=== PATIENT | male | born 1960 | race Caucasian/White ===

== ENCOUNTER → 2016-08-06 | Outpatient (CLI) | payer MEDICAID ==
--- NOTE | 2016-08-06 22:49 | MR ---
EXAMINATION TYPE: MR shoulder RT wo con DATE OF EXAM: 08/06/2016 4:53 PM COMPARISON: Outside radiographs 07/23/2016 HISTORY: 55-year-old male with pain in right shoulder TECHNIQUE: Multiplanar, multisequence imaging of the right shoulder is performed without contrast. FINDINGS: There is intermediate signal within the intracapsular portion of the long head biceps tendon suggesti ng tendinosis. Some intermediate signal involving the subscapularis tendon which remains intact. There is moderate degenerative joint space narrowing with marginal spurring and e capsular hypertroph y of the acromioclavicular joint weight inferior spurring encroaching onto the subacromial space with mild mass effect onto the myotendinous junction of the supraspinatus. No significant fluid distention of the subacromial/subdeltoid bursa. No atrophy of the rotator cuff m usculature. There is diffuse heterogeneous signal within both supraspinatus and infraspinatus tendons more extens oralia with associated thickening at the junction of the supraspinatus and infraspinatus tendons, segundo l T2 FS image 13. In addition, there is shallow bursal sided tear of the anterior supraspinatus tendo n measuring 1.3 cm long by 1.2 cm AP dimension. Some intrasubstance tearing possibly communicating wi th the bursal surface is present proximal to the footprint below the acromion at the supraspinatus in fraspinatus junction, coronal T2 FS image 15. No full-thickness tear. There is blunted and degenerative appearance to the superior labrum. No paralabral cyst. Glenohumeral joint is intact without significant joint effusion. No Hill-Sachs deformity or os acromiale. No suspicious bone marrow replacement. IMPRESSION: 1. Diffuse rotator cuff tendinosis with a shallow bursal sided tear of the anterior supraspinatus ten don (1.3 x 1.2 cm). Additional intrasubstance tear possibly communicating with the bursal surface mor e proximally below the acromion at the supraspinatus infraspinatus junction. No full-thickness tear o r muscle atrophy. 2. Intracapsular long head biceps tendinosis. 3. Moderate AC joint osteoarthrosis. Inferior spurring mildly impinges the underlying cuff.
== END | disposition home or self-care (01) ==
LOC: RADMRIMAIN 16:11
PROVIDERS: ATTEND Orthopaedic Surgery
DX: M19.011 Primary osteoarthritis, right shoulder (principal); M75.101 Unspecified rotator cuff tear or rupture of right shoulder, not specified as traumatic

== ENCOUNTER → 2016-09-11 | Outpatient (CLI) | payer MEDICAID ==
[2016-09-11 10:44] LABS: EKG EKG PERFORMED
[2016-09-11 10:59] LABS: Basophils % (A) 1 %; CH 30.3; CHCM 34.2; Eosinophils # (A) 0.2 k/uL (0-0.7); Eosinophils % (A) 2 %; HDW 2.97; HGB 14.3 gm/dL (13.0-17.5); Luc # (Auto) 0.27; Luc % (Auto) 4; Lymphocytes # (A) 2.9 k/uL (1.0-4.8); Lymphocytes % (A) 39 %; MCHC 32.6 g/dL (31.0-37.0); MCV 89.1 fL (80.0-100.0); Mean Platelet Volume 6.9; Monocytes # (A) 0.6 k/uL (0-1.0); Monocytes % (A) 8 %; Neutrophils # (A) 3.5 k/uL (1.3-7.7); Neutrophils % (A) 47 %; RBC 4.95 m/uL (4.30-5.90); RDW 13.3 % (11.5-15.5); WBC 7.6 k/uL (3.8-10.6); WBC (Perox) 7.79
[2016-09-11 11:12] LABS: Anion Gap 11 mmol/L; Carbon Dioxide 23 mmol/L (22-30); Chloride 107 mmol/L (98-107); Potassium 4.7 mmol/L (3.5-5.1); Sodium 141 mmol/L (137-145)
== END | disposition home or self-care (01) ==
LOC: LABPAT 10:35
PROVIDERS: ATTEND Orthopaedic Surgery
DX: Z01.810 Encounter for preprocedural cardiovascular examination (principal); M75.41 Impingement syndrome of right shoulder
CPT/HCPCS: 80051; 85025; 93005

== ENCOUNTER 2016-09-23 05:59 | Day surgery (SDC) | payer MEDICAID ==
[2016-09-18 10:57] VITALS: BMI 40.6
--- NOTE | 2016-09-22 15:03 | HP ---
DATE OF ADMISSION: 09/23/2016 Rob Swan is a 55-year-old patient seen with progressive right shoulder pain. After having treatment options discussed, he elected to proceed with right shoulder arthroscopy. Consent was obtained. Past medical history is noncontributory. Past surgical history is facial reconstructive surgery. DAILY MEDICATIONS: Naprosyn as needed. ALLERGIES: None reported. SOCIAL HISTORY: Patient denies current tobacco use. Physical evaluation of right shoulder: Flexion is 100 degrees, abduction is 90 degrees, external rotation is 50 degrees with some weakness. There is tenderness along the anterolateral acromion and rotator cuff insertion. Impingement +90 degrees, cross body adduction sign is positive. Distal neurovascular exam is intact. Right shoulder radiographs revealed a type 2 anterior acromion, acromioclavicular joint osteoarthritis, and cystic changes of the greater tuberosity. An MRI of the right shoulder revealed a partial rotator cuff tear, with biceps tendinitis as well as acromioclavicular joint osteoarthritis. IMPRESSION: Right shoulder impingement with partial rotator cuff tear and acromioclavicular joint osteoarthritis. PLAN: Right shoulder arthroscopy, subacromial decompression, possible arthroscopic rotator cuff repair, probable AC joint resection, probable biceps tenotomy, and debridement.
[~2016-09-23 05:59] MED LIST: DEXAMETHASONE SOD PHOSPHATE 10 MG/ML 1 ML VIAL IV ONE; HYDROmorphone 1 MG/ML 1 ML SYRINGE IVP PRN; LACTATED RINGERS 1,000 ML IV SCH; MIDAZOLAM 2 MG/2 ML VIAL IV PRN; ceFAZolin 3 GM in SODIUM CHLORIDE 0.9% 100 ML IVPB ONE
[2016-09-23] MEDS: ONDANSETRON 4 MG/2 ML VIAL IVP ONE ×2 (06:28→12:35)
[2016-09-23] MEDS ORDERED: LIDOCAINE 1% 20 ML VIAL (10MG/ML) FOR IV START INTRADERMA ONE (06:28)
[2016-09-23] MEDS ORDERED: NEOSTIGMINE 1 MG/ML 10 ML VIAL ONE (07:38)
[2016-09-23] MEDS ORDERED: LIDOCAINE 2%-EPI 1:100,000 20 ML VIAL ONE (07:38)
[2016-09-23] MEDS ORDERED: GLYCOPYRROLATE 0.2 MG/ML 2 ML VIAL ONE (07:38)
[2016-09-23] MEDS ORDERED: ROPIVACAINE 5 MG/ML 30 ML VIAL ONE (07:38)
[2016-09-23] MEDS ORDERED: ROCURONIUM BROMIDE 10 MG/ML 10 ML VIAL IV ONE (07:38)
[2016-09-23] MEDS ORDERED: fentaNYL (PF) 50 MCG/ML 2 ML AMP ONE (07:38)
[2016-09-23] MEDS ORDERED: MIDAZOLAM 2 MG/2 ML VIAL ONE (07:38)
[2016-09-23] MEDS ORDERED: SUCCINYLCHOLINE CHLORIDE VIAL 200 MG/10 ML VIAL IV ONE (07:38)
[2016-09-23] MEDS ORDERED: PROPOFOL 10 MG/ML 20 ML VIAL IV ONE (07:38)
[2016-09-23] MEDS ORDERED: LIDOCAINE 1% INJ 10MG/ML (20 ML MDV) ONE (07:38)
[2016-09-23] MEDS ORDERED: LACTATED RINGERS 1,000 ML IV ONE (07:40)
--- NOTE | 2016-09-23 09:24 | P.OP ---
Date of Procedure: 09/23/16 Preoperative Diagnosis: Right shoulder impingement Postoperative Diagnosis: 1. Right shoulder partial rotator cuff tendon tear 2. Right shoulder impingement 3. Right shoulder acromioclavicular joint osteoarthritis 4. Right shoulder partial biceps tendon tear 5. Right shoulder superficial labral tear Procedure(s) Performed: 1. Right shoulder arthroscopic debridement partial rotator cuff tear 2. Right shoulder arthroscopic subacromial decompression 3. Right shoulder arthroscopic Adriel procedure 4. Right shoulder arthroscopic biceps tenotomy 5. Right shoulder arthroscopic debridement labral tear Anesthesia: GETA, regional (Interscalene block) Surgeon: Jeet Lopez [employer] Designer #1: Tobin Zhao Estimated Blood Loss (ml): 10 Pathology: none sent Condition: stable Disposition: PACU Indications for Procedure: 55-year-old patient seen with progressive right shoulder pain. After having treatment options discussed, he elected to proceed with right shoulder arthroscopy. Operative Findings: See description of procedure Description of Procedure: Patient underwent a shoulder block by department of anesthesia. The patient was then taken to the operative suite. The patient underwent a general anesthetic by the department of anesthesia. The patient was placed into a lateral position and secured. There was appropriate padding of the bony prominence. Right shoulder was then prepped and draped in normal sterile orthopedic fashion. We placed the extremity in 10 pounds of longitudinal traction. A posterior incision was now made for a posterior working portal site. The trocar and cannula were inserted into the glenohumeral joint. Arthroscopy was initiated. Spinal needle was now inserted anteriorly, to ascertain the anterior working portal site. An incision was now made in that area, a trocar was inserted followed by a probe. There was superficial tearing of the superior and anterior labrum. Grade 1 chondral malacia changes of the glenoid with no significant osteochondral tears. Partial long head biceps tendon tearing with hyperemia. No loose bodies. I performed a biceps tenotomy. I debrided the labral tear down to stable tissue. The residual labrum was probed and found to be stable. Instruments were now removed from the glenohumeral joint. Utilizing the posterior working portal site, the trocar and cannula were inserted into the subacromial space. Arthroscopy initiated. I made an incision 2 fingerbreadths lateral to the acromion. I introduced my trocar followed by my ArthroCare ablator. I now began ablating thick subacromial bursal tissue, which exposed the undersurface of the anterior acromion. This was diminished subacromial space. There was a very prominent anterior acromion. A motorized bur was introduced and a subacromial decompression was performed. I also excised some osteophytes off the inferior aspect of the distal clavicle. The AC joint was visualized and noted to be fairly arthritic. A motorized bur was introduced in the anterior portal site and a Adriel procedure was performed without difficulty, decompressing the AC joint nicely. I turned my attention to the rotator cuff. There was superficial tearing of the distal supraspinatus area. I now debrided that getting down to stable tissue with a motorized shaver. The residual tendon was stable. There was no through and through perforation. There was good healthy residual rotator cuff tendon tissue present. I injected that area with 1 mL of Allogen. Instruments now removed from the portal sites. All portal sites were approximated with nylon suture. Sterile dressings were applied followed by a shoulder immobilizer. Robbie LOPES assisted with the procedure. The patient was awakened, transferred to a bed, and taken to recovery in stable condition.
[2016-09-23 09:26] VITALS: TEMP 97.7
--- NOTE | 2016-09-23 10:07 | P.ONQ ---
Anesthesiology Proc Note - PNB - Peripheral Nerve Block Performed Right Interscalene Single Time Out Performed: Yes Indication: Acute Post-Operative Pain Sedation Type: Sedate with meaningful contact maintained Preparation: Sterile Prep Position: Supine Needle Gauge: 21 Technique: Ultrasound Injectate: 0.5% Ropivacaine (see comment for volume) (ropi .5% 20 cc,xylo 2% with epi 15cc and dexamethasone 4mg) Blood Aspirated: No Pain Paresthesia on Injection Noted: No Resistance on Injection: Normal Events: Uneventful and Well Tolerated
[2016-09-23 11:35] VITALS: RESP 18
[2016-09-23 13:35] VITALS: BP 142/76; PULSE 68
== END 2016-09-23 13:58 | disposition home or self-care (01) ==
LOC: OR 05:59
PROVIDERS: ATTEND Orthopaedic Surgery
DX: M75.111 Incomplete rotator cuff tear or rupture of right shoulder, not specified as traumatic (principal); M75.41 Impingement syndrome of right shoulder; M19.011 Primary osteoarthritis, right shoulder; S46.111A Strain of muscle, fascia and tendon of long head of biceps, right arm, initial encounter; X58.XXXA Exposure to other specified factors, initial encounter; S43.401A Unspecified sprain of right shoulder joint, initial encounter; Z79.82 Long term (current) use of aspirin; Z79.1 Long term (current) use of non-steroidal anti-inflammatories (NSAID); Z88.5 Allergy status to narcotic agent; M25.711 Osteophyte, right shoulder
CPT/HCPCS: 29823; 29824; 64415; C1765; J2250; J0330; J1100; J2710; J0690; J2405; J2001; J3010; J2795; J2704

== ENCOUNTER 2017-04-23 16:16 | Emergency (ER) | payer MEDICAID, OTHER ==
[2017-04-23] MEDS ORDERED: DIPH,PERTUS(ACELL)TETVAC-LF 0.5 ML VIAL IM ONE (16:36)
[2017-04-23 16:38] VITALS: BP 169/93; PULSE 65; RESP 18; TEMP 97
--- NOTE | 2017-04-23 16:45 | ED ---
Wound/Laceration HPI - General Chief Complaint: Wound/Laceration Stated Complaint: head lac Time Seen by Provider: 04/23/17 16:33 Source: patient, RN notes reviewed Mode of arrival: ambulatory Limitations: no limitations - History of Present Illness Initial Comments: 56-year-old male presents to the emergency Department with chief complaint of scalp laceration. Patient states that he was at work upstairs in the [employer] states that he hit his head on a bracket. Patient states she's unsure when his last tetanus was. Patient did not lose consciousness. Patient has no headache at this time. Patient is blurred vision or any focal weakness. Patient states he felt that he had an episode of dizziness for first happened but states that was just because he struck his head. He states that immediately resolved. - Related Data Home Medications Medication Instructions Recorded Confirmed Aspirin 81 mg PO DAILY 04/04/14 09/23/16 Multivitamin [Men's Multi-Vitamin] 1 each PO DAILY 04/04/14 09/23/16 Naproxen 500 mg PO DAILY 09/18/16 09/23/16 Previous Rx's Medication Instructions Recorded Hydrocodone/Acetaminophen [Waldorf 1 - 2 each PO Q6H PRN #30 tab 09/23/16 10-325] Allergies Allergy/AdvReac Type Severity Reaction Status Date / Time morphine AdvReac Nausea & Verified 04/23/17 16:33 Vomiting Review of Systems ROS Statement: Those systems with pertinent positive or pertinent negative responses have been documented in the HPI. ROS Other: All systems not noted in ROS Statement are negative. Past Medical History Past Medical History: Cancer Additional Past Medical History / Comment(s): skin cancer History of Any Multi-Drug Resistant Organisms: MRSA Date of last positivie culture/infection: 2005 MDRO Source:: BILAT LEGS Past Surgical History: Orthopedic Surgery Additional Past Surgical History / Comment(s): 08/21 FACE RECONSTRUCTION R/T CANCER Past Anesthesia/Blood Transfusion Reactions: No Reported Reaction Past Psychological History: No Psychological Hx Reported Smoking Status: Never smoker Past Alcohol Use History: Occasional Past Drug Use History: None Reported - Past Family History Mother Family Medical History: No Reported History General Exam Limitations: no limitations General appearance: alert, in no apparent distress Head exam: Present: atraumatic, normocephalic. Absent: normal inspection (3 cm scalp laceration to left parietal region) Eye exam: Present: normal appearance, PERRL, EOMI. Absent: scleral icterus, conjunctival injection, periorbital swelling ENT exam: Present: normal exam, normal oropharynx, mucous membranes moist, TM's normal bilaterally Neck exam: Present: normal inspection, full ROM. Absent: tenderness, meningismus, lymphadenopathy Respiratory exam: Present: normal lung sounds bilaterally. Absent: respiratory distress, wheezes, rales, rhonchi, stridor Cardiovascular Exam: Present: regular rate, normal rhythm, normal heart sounds. Absent: systolic murmur, diastolic murmur, rubs, gallop, clicks Neurological exam: Present: alert, oriented X3, CN II-XII intact, reflexes normal. Absent: motor sensory deficit Course Vital Signs 04/23/17 16:30 Temperature 97 F L Pulse Rate 65 Respiratory 18 Rate Blood Pressure 169/93 O2 Sat by Pulse 95 Oximetry Procedures - Laceration Laceration #1 Consent Obtained: verbal consent Indication: laceration Site: scalp Size (cm): 3 Description: linear Depth: simple, single layer Anesthetic Used: lidocaine 1%, without epi Anesthesia Technique: local infiltration Amount (mls): 3 Pre-repair: wound explored, irrigated extensively, deep structures intact Type of Sutures: other (Dermal joana) Number of Sutures: 4 Technique: simple, interrupted Patient Tolerated Procedure: well, no complications Medical Decision Making - Medical Decision Making 56-year-old male present emergency from for scalp laceration. This was closed using dermal joana. Patient tolerated well, patient had a normal neurological exam. Patient had no evidence discussion. Return parameters were discussed. Tetanus was updated. Disposition Clinical Impression: Scalp laceration Disposition: HOME SELF-CARE Condition: Stable Instructions: Laceration (ED) Additional Instructions: Have joana removed in 5-7 days.Please return to the Emergency Department if symptoms worsen or any other concerns. Referrals: Collin Nuñez Jr, [Primary Care Provider] - 1-2 days Time of Disposition: 16:44
== END 2017-04-23 16:53 | disposition home or self-care (01) ==
LOC: EC 16:16
DX: S01.01XA Laceration without foreign body of scalp, initial encounter (principal); R42 Dizziness and giddiness; Z23 Encounter for immunization; Z86.14 Personal history of Methicillin resistant Staphylococcus aureus infection; Z85.828 Personal history of other malignant neoplasm of skin; Z79.82 Long term (current) use of aspirin; Z79.1 Long term (current) use of non-steroidal anti-inflammatories (NSAID); Z79.899 Other long term (current) drug therapy; Z88.5 Allergy status to narcotic agent; W22.8XXA Striking against or struck by other objects, initial encounter; Y92.234 Operating room of hospital as the place of occurrence of the external cause; Y99.0 Civilian activity done for income or pay
CPT/HCPCS: 12002; 90471; 90715; 99282

== ENCOUNTER 2018-06-21 06:54 | Emergency (ER) | payer MEDICAID ==
[2018-06-21 07:00] VITALS: RESP 18; TEMP 97.7
--- NOTE | 2018-06-21 07:44 | ED ---
Lower Extremity Injury HPI - General Chief Complaint: Extremity Injury, Lower Stated Complaint: L knee pain Time Seen by Provider: 06/21/18 07:04 Source: patient, RN notes reviewed Mode of arrival: wheelchair Limitations: no limitations, altered mental status, physical limitation - History of Present Illness Initial Comments: 57-year-old male presents emergency Department with chief complaint of left leg pain. Patient states that he felt that he initially just tore a muscle. Patient states that the pain seemed to worsen towards his knee. His knee was slightly swollen but has improved. He states the pain got worse overnight and he states he cannot bear any weight on it. Patient states that the pain is more on the lateral aspect of his leg. He denies any redness, fever, chills. Denies any trauma. Patient had no back pain no other issues with this in the past. Patient states she hasn't taken a couple Tylenol for the pain but otherwise no other medications. Denies chest pain or shortness of breath. - Related Data Home Medications Medication Instructions Recorded Confirmed Aspirin 81 mg PO DAILY 04/04/14 06/21/18 Multivitamin [Men's Multi-Vitamin] 1 each PO DAILY 04/04/14 06/21/18 Previous Rx's Medication Instructions Recorded predniSONE 50 mg PO DAILY #5 tab 06/21/18 Allergies Allergy/AdvReac Type Severity Reaction Status Date / Time morphine AdvReac Nausea & Verified 06/21/18 07:17 Vomiting Review of Systems ROS Statement: Those systems with pertinent positive or pertinent negative responses have been documented in the HPI. ROS Other: All systems not noted in ROS Statement are negative. Past Medical History Past Medical History: Cancer Additional Past Medical History / Comment(s): skin cancer, History of Any Multi-Drug Resistant Organisms: MRSA Date of last positivie culture/infection: 2005 MDRO Source:: BILAT LEGS Past Surgical History: Orthopedic Surgery Additional Past Surgical History / Comment(s): 08/21 FACE RECONSTRUCTION R/T CANCER, Past Anesthesia/Blood Transfusion Reactions: No Reported Reaction Past Psychological History: No Psychological Hx Reported Smoking Status: Never smoker Past Alcohol Use History: Occasional Past Drug Use History: None Reported - Past Family History Mother Family Medical History: No Reported History General Exam Limitations: physical limitation General appearance: alert, in no apparent distress Head exam: Present: atraumatic, normocephalic, normal inspection Neck exam: Present: normal inspection. Absent: tenderness, meningismus, lymphadenopathy Respiratory exam: Present: normal lung sounds bilaterally. Absent: respiratory distress, wheezes, rales, rhonchi, stridor Cardiovascular Exam: Present: regular rate, normal rhythm, normal heart sounds. Absent: systolic murmur, diastolic murmur, rubs, gallop, clicks Extremities exam: Present: other (Minimal swelling to the left leg there is no erythema, pedal pulses equal bilaterally. Patient has full range of motion, leg is neurovascularly intact strength equal bilaterally 5/5) Back exam: Present: full ROM. Absent: tenderness, paraspinal tenderness, vertebral tenderness Neurological exam: Present: alert, oriented X3, CN II-XII intact, reflexes normal. Absent: motor sensory deficit Skin exam: Present: warm, dry, intact, normal color. Absent: rash Course Vital Signs 06/21/18 06:57 Temperature 97.7 F Pulse Rate 76 Respiratory 18 Rate Blood Pressure 182/100 O2 Sat by Pulse 98 Oximetry Medical Decision Making - Medical Decision Making 57-year-old male present emergency dept for left leg pain. Patient pain has been over one week but worsened overnight. Patient's pain on lateral aspect. Patient also, x-ray. There is degenerative changes of his knee otherwise no other obvious injuries. Patient has no signs of infection pulses are equal bilaterally. This appears to be related to possible lumbar radicular pain. Did consider arterial occlusion, venous thrombosis, infection. There is no signs of these. Patient will be discharged with steroids, close follow-up with orthopedics pain control. Disposition Clinical Impression: Lumbar radiculopathy, acute, Left leg pain Disposition: HOME SELF-CARE Condition: Stable Instructions: Lumbar Radiculopathy (ED) Additional Instructions: Please return to the Emergency Department if symptoms worsen or any other concerns. Prescriptions: predniSONE 50 mg PO DAILY #5 tab Is patient prescribed a controlled substance at d/c from ED?: No Referrals: Collin Nuñez Jr, DO [Primary Care Provider] - 1-2 days Lj Marley MD [Medical Doctor] - 1-2 days Time of Disposition: 08:59
--- NOTE | 2018-06-21 08:04 | US ---
EXAMINATION TYPE: US venous doppler duplex LE LT DATE OF EXAM: 06/21/2018 7:50 AM COMPARISON: NONE CLINICAL HISTORY: Pain. Pain left leg SIDE PERFORMED: Left TECHNIQUE: The lower extremity deep venous system is examined utilizing real time linear array sonog sammie with graded compression, doppler sonography and color-flow sonography. VESSELS IMAGED: External Iliac Vein (EIV) Common Femoral Vein Deep Femoral Vein Greater Saphenous Vein * Femoral Vein Popliteal Vein Small Saphenous Vein * Proximal Calf Veins (* superficial vessels) There is normal flow, compressibility, vascular waveforms. Left Leg: Negative for DVT IMPRESSION: No evident deep venous thrombosis at or above the left knee.
--- NOTE | 2018-06-21 08:33 | XR ---
Left leg HISTORY: Pain and swelling 2 views of the left leg and 4 images Soft tissue swelling is noted. Small ossific densities at the level of the medial malleolus are well- corticated and not felt likely to be acute. Alignment, joint spaces, bone mineralization normal. Calc ifications present at the level of the insertion of the patellar tendon shows a nonaggressive appeara nce. Enthesophyte present at the proximal tibia, patella tendon origin and quadriceps tendon insertio n. IMPRESSION: No acute abnormalities evident.
[2018-06-21] MEDS ORDERED: traMADol 50 MG STARTER PACK 3 TAB BTL PO STA (08:59)
[2018-06-21 09:28] VITALS: BP 147/87; PULSE 72
== END 2018-06-21 09:21 | disposition home or self-care (01) ==
LOC: EC 06:54
DX: M54.16 Radiculopathy, lumbar region (principal); M25.562 Pain in left knee; Z85.828 Personal history of other malignant neoplasm of skin; Z86.14 Personal history of Methicillin resistant Staphylococcus aureus infection; Z79.82 Long term (current) use of aspirin; Z88.5 Allergy status to narcotic agent
CPT/HCPCS: 99284

== ENCOUNTER → 2018-06-24 | Outpatient (CLI) | payer MEDICAID ==
--- NOTE | 2018-06-26 22:03 | MR ---
EXAMINATION TYPE: MR knee LT wo con DATE OF EXAM: 06/24/2018 COMPARISON: Outside left knee x-ray June 21, 2018. HISTORY: Pain in left knee and calf x 10 days, no known trauma TECHNIQUE: Multiplanar, multisequence images of the knee is performed without IV contrast. FINDINGS: Examination was suboptimal due to patient's large body habitus, wraparound artifact is pres ent along with heterogeneous fat saturation. MEDIAL MENISCUS: Anterior horn is intact without tear. Oblique signal posterior horn of medial menisc us does not distinctly extend to the inferior articular surface. LATERAL MENISCUS: Anterior and posterior horns are intact without tear. CRUCIATE LIGAMENTS: The anterior and posterior cruciate ligaments are intact and unremarkable. COLLATERAL LIGAMENTS: The medial collateral ligament and lateral collateral ligament complex are inta ct and unremarkable. EXTENSOR MECHANISM: Visualized quadriceps and patellar tendons are intact. There appears to be ossifi c fragmentation from the tibial tuberosity suggesting old [place] Schlatter injury. Correlate clinical ly. EFFUSION: No significant suprapatellar joint effusion. POPLITEAL CYST: There is small popliteal/reyna fluid collection possible leaking Reyna's cyst. TRICOMPARTMENT SPACES: There is mild tricompartment spurring. There is mild joint space loss medial l ateral tibiofemoral compartments. [id number] narrowing patellofemoral compartment is present. CARTILAGE: There is tricompartment mild cartilaginous loss. No full-thickness defects are seen. BONE MARROW SIGNAL: Heterogeneity consistent with red marrow reconversion is present. No suspicious e snow is seen. OTHER: No additional significant abnormality is appreciated. IMPRESSION: 1. Mild to moderate tricompartment degenerative changes as detailed above. 2. Suspect intrasubstance tear posterior horn medial meniscus. No full-thickness meniscal or ligament ous tear is seen. 3. 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
== END | disposition home or self-care (01) ==
LOC: RADMRIMAIN 16:35
PROVIDERS: ATTEND Orthopaedic Surgery
DX: M25.562 Pain in left knee (principal); M17.12 Unilateral primary osteoarthritis, left knee

== ENCOUNTER → 2018-08-01 | Outpatient (CLI) | payer MEDICAID ==
[2018-08-01 12:04] LABS: Basophils # (A) 0.1 k/uL (0-0.2); Basophils % (A) 1 %; Eosinophils # (A) 0.2 k/uL (0-0.7); Eosinophils % (A) 2 %; HCT 44.3 % (39.0-53.0); HGB 14.3 gm/dL (13.0-17.5); Lymphocytes # (A) 2.4 k/uL (1.0-4.8); Lymphocytes % (A) 30 %; MCH 28.6 pg (25.0-35.0); MCHC 32.3 g/dL (31.0-37.0); MCV 88.6 fL (80.0-100.0); Mean Platelet Volume 6.2; Monocytes # (A) 0.5 k/uL (0-1.0); Monocytes % (A) 7 %; Neutrophils # (A) 4.6 k/uL (1.3-7.7); Neutrophils % (A) 58 %; Platelet Count 189 k/uL (150-450); RDW 13.9 % (11.5-15.5)
[2018-08-01 12:26] LABS: Potassium 4.7 mmol/L (3.5-5.1)
== END ==
LOC: LABPAT 10:45
PROVIDERS: ATTEND Orthopaedic Surgery
DX: Z01.812 Encounter for preprocedural laboratory examination (principal); M23.92 Unspecified internal derangement of left knee
CPT/HCPCS: 36415; 80051; 85025

== ENCOUNTER 2018-08-04 13:18 | Day surgery (SDC) | payer MEDICAID ==
[2018-08-03 08:57] VITALS: BMI 40.6
--- NOTE | 2018-08-03 17:49 | HP ---
HISTORY AND PHYSICAL REASON FOR ADMISSION: Surgery scheduled 08/04/2018 HISTORY OF PRESENT ILLNESS: Rob Swan is a 57-year-old patient seen with progressive left knee pain. We discussed options for treatment. He elected to proceed with left knee arthroscopy. Consent was obtained. PAST MEDICAL HISTORY: Noncontributory. PAST SURGICAL HISTORY: Facial reconstructive surgery. MEDICATIONS: Daily medication include: Aspirin, multivitamin. ALLERGIES: MORPHINE. SOCIAL HISTORY: Denies tobacco use. PHYSICAL EXAMINATION: Evaluation of the left knee: Range of motion 0-115 degrees. Tenderness medial joint line. Positive medial Barbara's. Ligaments stable. Hip rotation without pain. Distal neurovascular exam is intact. RADIOGRAPHS: Left knee radiographs revealed no osseous abnormality. MRI of the left knee revealed osteoarthritic changes. IMPRESSION: Internal derangement, left knee with meniscal tear versus osteochondral tear. PLAN: Left knee arthroscopy with partial meniscectomy versus chondroplasty and debridement. Surgery scheduled for 08/04/2018. MMODL / IJN: [id number] /
[~2018-08-04 13:18] MED LIST changes: -HYDROmorphone 1 MG/ML 1 ML SYRINGE IVP PRN; +LIDOCAINE 1% 20 ML VIAL (10MG/ML) FOR IV START INTRADERMA PRN; +MIDAZOLAM (PF) 2 MG/2 ML VIAL IV PRN; -MIDAZOLAM 2 MG/2 ML VIAL IV PRN; +ONDANSETRON 4 MG/2 ML VIAL IVP ONE; +SCOPOLAMINE 1.5MG/72HR PATCH TRANSDERM ONE; -ceFAZolin 3 GM in SODIUM CHLORIDE 0.9% 100 ML IVPB ONE
[2018-08-04 13:53] LABS: Glucose,Whole Blood 90 mg/dL (75-99)
[2018-08-04] MEDS ORDERED: LIDOCAINE 1% INJ 10MG/ML (20 ML MDV) ONE (14:36)
[2018-08-04] MEDS ORDERED: HYDROmorphone (PF) 1 MG/ML ONE (14:36)
[2018-08-04] MEDS ORDERED: fentaNYL (PF) 50 MCG/ML 2 ML AMP ONE (14:36)
[2018-08-04] MEDS ORDERED: KETOROLAC 30 MG/ML 1 ML VIAL ONE (14:36)
[2018-08-04] MEDS ORDERED: MIDAZOLAM 2 MG/2 ML VIAL ONE (14:36)
[2018-08-04] MEDS ORDERED: SUCCINYLCHOLINE CHLORIDE 100 MG/5 ML SYR IV ONE (14:36)
[2018-08-04] MEDS ORDERED: PROPOFOL 10 MG/ML 20 ML VIAL IV ONE (14:36)
[2018-08-04] MEDS ORDERED: BUPIVACAIN-EPI 0.25%-1:200,000 30 ML VIAL INTRAARTIC ONE (14:46)
--- NOTE | 2018-08-04 15:32 | P.OP ---
Date of Procedure: 08/04/18 Preoperative Diagnosis: Internal derangement left knee Postoperative Diagnosis: 1. Tear medial meniscus left knee 2. Reactive synovitis medial, lateral and suprapatellar compartments left knee Procedure(s) Performed: 1. Arthroscopic partial medial meniscectomy left knee 2. Arthroscopic partial synovectomy medial, lateral and suprapatellar compartments left knee Anesthesia: CHRISA, local Surgeon: Jeet Lopez Estimated Blood Loss (ml): 5 Pathology: none sent Condition: stable Disposition: PACU Indications for Procedure: 57-year-old patient seen with progressive left knee pain. We discussed treatment options, he elected to proceed with arthroscopy. Description of Procedure: Patient was taken to the operative suite. Patient underwent a general anesthetic by the department of anesthesia. Patient was given preoperative antibiotics. The left lower extremity was placed in a well-padded arthroscopic leg tiwari. The left leg was prepped and draped in the normal sterile orthopedic fashion. A lateral parapatellar and suprapatellar incision was made. Trochars were inserted. Arthroscopy was initiated. Suprapatellar pouch revealed diffuse thick reactive synovitis. The patellofemoral joint appeared to articulate congruently. There was no chondromalacia present. The scope was guided into the medial gutter. No loose bodies or plica were identified. The scope was then guided into the medial compartment. A medial parapatellar incision was made. Trocar inserted followed by probe. There was a tear involving the posterior horn medial meniscus. There was thick reactive synovitis anteriorly. No loose bodies. Mild grade 1 chondromalacia of the femur. I performed a partial medial meniscectomy down to stable tissue. I performed a partial synovectomy decompressing the reactive synovitis. The residual meniscus was stable. There was good decompression of the synovitis. Scope and probe were then guided into the intercondylar notch. Cruciates were identified, probed and found to be stable. The scope and probe were then guided into lateral compartment. Lateral meniscus was probed and found to be stable. There was no chondromalacia present in the lateral compartment. There was some reactive synovitis along the anterior aspect lateral compartment. I performed a partial synovectomy involving the anterior aspect lateral compartment. There was good decompression of synovitis. The scope was in guided back into the suprapatellar compartment. I introduced a motorized shaver into the super patellar compartment. I debrided some piecemeal fragments of meniscus I encountered. I performed a partial synovectomy decompressing the reactive synovitis. The shaver was removed. I took one more look on the entire knee, no residual debris. Instruments were now removed from the joint. The joint was infiltrated with .25% Marcaine. Steri-Strips were applied to the portal sites. Sterile dressings were applied. The patient was placed into a SOY hose. No tourniquet was utilized. The patient was awakened, transferred to a bed and taken to recovery stable satisfactory condition.
[2018-08-04 15:38] VITALS: TEMP 98
[2018-08-04] MEDS ORDERED: hydrALAZINE HCL 20 MG/ML 1 ML VIAL IVP ONE (15:40)
[2018-08-04 15:55] VITALS: RESP 18
[2018-08-04] MEDS: HYDROmorphone 0.5 MG/0.5 ML SYRINGE IVP PRN ×2 (16:05→16:19)
[2018-08-04] MEDS ORDERED: HYDROcodone/APAP 7.5-325MG 1 EACH TAB PO ONE (17:21)
[2018-08-04 17:37] VITALS: BP 168/69; PULSE 76
[2018-08-04] MEDS ORDERED: ONDANSETRON 4 MG/2 ML VIAL IVP ONE (17:50)
[2018-08-04] MEDS ORDERED: LACTATED RINGERS 1,000 ML IV ONE (17:50)
== END 2018-08-04 18:15 | disposition home or self-care (01) ==
LOC: OR 13:18
PROVIDERS: ATTEND Orthopaedic Surgery
DX: M23.322 Other meniscus derangements, posterior horn of medial meniscus, left knee (principal); I10 Essential (primary) hypertension; M65.862 Other synovitis and tenosynovitis, left lower leg; M94.262 Chondromalacia, left knee; K21.9 Gastro-esophageal reflux disease without esophagitis; Z79.1 Long term (current) use of non-steroidal anti-inflammatories (NSAID); Z79.82 Long term (current) use of aspirin; Z79.899 Other long term (current) drug therapy; Z88.5 Allergy status to narcotic agent; Z85.828 Personal history of other malignant neoplasm of skin
CPT/HCPCS: 29881; 29876; J2250; J0360; J1100; J0690; J2405; J2001; J3010; J1885; J1170 ×2; J0330; J2704

== ENCOUNTER → 2019-08-07 | Outpatient (CLI) | payer MEDICAID ==
[2019-08-07 16:45] LABS: HCT 43.2 % (39.0-53.0); HGB 14.4 gm/dL (13.0-17.5); MCH 29.6 pg (25.0-35.0); MCHC 33.3 g/dL (31.0-37.0); Mean Platelet Volume 7.2; Platelet Count 154 k/uL (150-450); RBC 4.85 m/uL (4.30-5.90); RDW 13.6 % (11.5-15.5); WBC 7.5 k/uL (3.8-10.6)
[2019-08-07 16:53] LABS: ALT 46 U/L (4-49); AST 42 U/L (17-59); African American GFR (CKD) >90 (>60 ml/min/1.73 sqM); Albumin 4.2 g/dL (3.5-5.0); Alkaline Phosphatase 49 U/L (38-126); Anion Gap 8 mmol/L; Blood Urea Nitrogen 19 mg/dL (9-20); Calcium 8.7 mg/dL (8.4-10.2); Carbon Dioxide 27 mmol/L (22-30); Chloride 108 mmol/L (98-107); Glucose 115 mg/dL (74-99); Non-African American GFR(CKD) >90 (>60 ml/min/1.73 sqM); Potassium 4.2 mmol/L (3.5-5.1); Sodium 143 mmol/L (137-145); Total Bilirubin 0.6 mg/dL (0.2-1.3); Total Protein 6.6 g/dL (6.3-8.2)
== END | disposition home or self-care (01) ==
LOC: LABPAT 15:50
PROVIDERS: ATTEND Podiatrist Foot & Ankle Surgery
DX: Z01.812 Encounter for preprocedural laboratory examination (principal)
CPT/HCPCS: 36415; 80053; 85027

== ENCOUNTER 2019-08-09 11:43 | Day surgery (SDC) | payer MEDICAID ==
[2019-08-07 11:26] VITALS: BMI 43.7
[~2019-08-09 11:43] MED LIST changes: +HYDROmorphone 0.5 MG/0.5 ML SYRINGE IVP PRN; -LACTATED RINGERS 1,000 ML IV SCH; -MIDAZOLAM (PF) 2 MG/2 ML VIAL IV PRN; +Pre Op ABX Message 1 EACH MISC MISCELLANE ONE; -SCOPOLAMINE 1.5MG/72HR PATCH TRANSDERM ONE
[2019-08-09 12:18] VITALS: TEMP 97.2
[2019-08-09 12:27] LABS: Glucose,Whole Blood 88 mg/dL (75-99)
[2019-08-09] MEDS: LACTATED RINGERS 1,000 ML IV SCH ×2 (12:29→12:57)
[2019-08-09] MEDS ORDERED: MIDAZOLAM 2 MG/2 ML VIAL ONE (12:53)
[2019-08-09] MEDS ORDERED: PROPOFOL 10 MG/ML 20 ML VIAL IV ONE (12:53)
[2019-08-09] MEDS ORDERED: KETAMINE 10 MG/ML 20 ML VIAL ONE (12:53)
[2019-08-09] MEDS ORDERED: fentaNYL (PF) 50 MCG/ML 2 ML AMP ONE (12:53)
[2019-08-09] MEDS ORDERED: BUPIVACAINE (PF) 0.5% 30 ML VIAL SQ ONE (12:58)
--- NOTE | 2019-08-09 14:15 | P.OP ---
Date of Procedure: 08/09/19 Preoperative Diagnosis: Tailor bunion deformity bilaterally Postoperative Diagnosis: Same Procedure(s) Performed: Simple tailor bunionectomy procedure performed bilaterally Surgeon: Kulwant Ayala Indications for Procedure: Pain with ambulation and use of enclosures sugar Operative Findings: Unremarkable Description of Procedure: On the date of surgery the patient was taken the operating room in good condition placed on the operating table in a supine position where an IV was started and adequate IV anesthetic agents were utilized anesthesia was then further supplemented with a total of 20 mL of 0.5% plain Marcaine given in a [place] type block to the fifth ray complex of both feet Patient's feet and ankles were then prepped and draped in the usual aseptic manner. Her heavy web roll padding an ankle tourniquet was placed above the malleoli of each ankle. Patient's left foot and ankle were then elevated and exsanguinated of blood for approximately 2 minutes and the ankle tourniquet to the left ankle was inflated to approximately 250 mmHg At this time attention was directed to the dorsal aspect of the distal one third of the shaft of the fifth metatarsal where an approximately 3 cm dorsal linear incision was made the incision was deepened via sharp dissection down through the level of the subcutaneous tissue layers all neurovascular structures encountered were identified isolated and were retracted and any bleeding vessels were clamped electrocauterized dissection was then carried deep down to the level PERIOSTEAL STRUCTURES OVERLYING THE FIFTH METATARSAL HEAD. THESE WERE INCISED IN LINE WITH THE ORIGINAL SKIN INCISION AND UNDERSCORED AND RETRACTED FROM THE UNDERLYING BONE. AT THIS POINT IN TIME AN OSCILLATING BONE SAW WAS I NTRODUCED AND THE HYPEROSTOSIS PRESENT ON THE LATERAL SIDE OF THE FIFTH METATARSAL HEAD WAS RESECTED FLUSH IN LINE WITH THE SHAFT OF THE FIFTH METATARSAL AND REMOVED IN TOTAL FROM THE SURGICAL SITE. HER OUT THE SURGICAL PROCEDURE COPIOUS AMOUNTS OF STERILE SALINE SOLUTION WAS USED TO IRRIGATE THE SURGICAL SITE WHEN ADEQUATE BONE HAD BEEN DETERMINED TO BE RESECTED Periosteal Structures Were Coaptated and Maintained Utilizing 3-0 Vicryl Simple Interrupted Suture Subcutaneous Tissue Layers Were Then Coaptated and Maintained Utilizing 3-0 Vicryl Suture and the Skin Was Closed Utilizing 4-0 Nylon Simple Interrupted Suture Fluffs Four-Inch Conformer 4 Inch Coban Was Used To Form a Compression Dressing and the Ankle Tourniquet to the Left Ankle Was Deflated Adequate Hemostatic Return Was Seen in All Digits of the Left Foot Specifically the Fifth Digit At this point in time attention was directed to the patient's right foot where the exact same procedure described above for the patient's left foot was carried out on the patient's right foot Rate the surgeries and anesthesia well was taken recovery room in good postoperative condition
[2019-08-09 14:16] VITALS: RESP 16
[2019-08-09 14:44] VITALS: BP 133/85; PULSE 60
== END 2019-08-09 15:23 | disposition home or self-care (01) ==
LOC: OR 11:43
PROVIDERS: ATTEND Podiatrist Foot & Ankle Surgery
DX: M21.622 Bunionette of left foot (principal); M21.621 Bunionette of right foot; M89.8X7 Other specified disorders of bone, ankle and foot; E66.01 Morbid (severe) obesity due to excess calories; K21.9 Gastro-esophageal reflux disease without esophagitis; M19.90 Unspecified osteoarthritis, unspecified site; Z79.82 Long term (current) use of aspirin; Z88.5 Allergy status to narcotic agent; Z68.42 Body mass index [BMI] 45.0-49.9, adult; Z85.828 Personal history of other malignant neoplasm of skin
CPT/HCPCS: 88304; 88311; 28110; J2250; J1100; J2405; J0694; J3010; J2704

== ENCOUNTER 2019-10-17 09:11 | Emergency (ER) | payer MEDICAID ==
[2019-10-17] MEDS ORDERED: SODIUM CHLORIDE 0.9% 1,000 ML IV STA (09:33)
--- NOTE | 2019-10-17 09:39 | ED ---
SOB HPI - General Chief Complaint: Shortness of Breath Stated Complaint: Rule out covid Time Seen by Provider: 10/17/19 09:20 Source: patient, RN notes reviewed Mode of arrival: wheelchair Limitations: no limitations - History of Present Illness Initial Comments: This a 58-year-old male history of basal cell cancer facial reconstruction arthritis states he felt well last evening but when he woke up this morning he felt some chills he also felt feverish. Had temperature of this over 100F. He felt shaky. Also started developing shortness of breath this morning. No overt chest pain no cough or phlegm production no earache sore throat runny nose. He also states recently his blood pressures are running elevated high approximately 160/78 MD Complaint: shortness of breath - Related Data Home Medications Medication Instructions Recorded Confirmed Aspirin 81 mg PO DAILY 04/04/14 08/09/19 Multivitamin [Men's Multi-Vitamin] 1 each PO DAILY 04/04/14 08/09/19 Previous Rx's Medication Instructions Recorded Albuterol Inhaler [Ventolin Hfa 2 puff INHALATION Q6HR PRN #1 10/17/19 Inhaler] inhaler Azithromycin [Zithromax Z-pack] 250 mg PO DIRECTED #6 tab 10/17/19 Allergies Allergy/AdvReac Type Severity Reaction Status Date / Time morphine AdvReac Nausea & Verified 08/09/19 12:02 Vomiting Review of Systems ROS Statement: Those systems with pertinent positive or pertinent negative responses have been documented in the HPI. ROS Other: All systems not noted in ROS Statement are negative. Past Medical History Past Medical History: Cancer, Osteoarthritis (OA) Additional Past Medical History / Comment(s): skin cancer History of Any Multi-Drug Resistant Organisms: MRSA Date of last positivie culture/infection: 2005 MDRO Source:: BILAT LEGS Past Surgical History: Orthopedic Surgery Additional Past Surgical History / Comment(s): 08/21 FACIAL RECONSTRUCTION R/T basal cell CANCER, right rotator cuff repair, left knee arthroscopy Past Anesthesia/Blood Transfusion Reactions: No Reported Reaction Past Psychological History: No Psychological Hx Reported Smoking Status: Never smoker Past Alcohol Use History: Occasional Past Drug Use History: None Reported - Past Family History Mother Family Medical History: No Reported History Father Family Medical History: Cancer General Exam - General Exam Comments Initial Comments: This a well-developed well-nourished awake alert oriented 3 male Limitations: no limitations General appearance: alert, in no apparent distress Head exam: Present: atraumatic, normocephalic, normal inspection Eye exam: Present: normal appearance, PERRL, EOMI. Absent: scleral icterus, conjunctival injection, periorbital swelling ENT exam: Present: normal exam, mucous membranes moist Neck exam: Present: normal inspection. Absent: tenderness, meningismus, lymphadenopathy Respiratory exam: Present: normal lung sounds bilaterally. Absent: respiratory distress, wheezes, rales, rhonchi, stridor Cardiovascular Exam: Present: regular rate, normal rhythm, normal heart sounds. Absent: systolic murmur, diastolic murmur, rubs, gallop, clicks GI/Abdominal exam: Present: soft, normal bowel sounds. Absent: distended, tenderness, guarding, rebound, rigid Extremities exam: Present: normal inspection, full ROM, normal capillary refill. Absent: tenderness, pedal edema, joint swelling, calf tenderness Back exam: Present: normal inspection Neurological exam: Present: alert, oriented X3, CN II-XII intact Psychiatric exam: Present: normal affect, normal mood Skin exam: Present: warm, dry, intact, normal color. Absent: rash Course Vital Signs 10/17/19 10/17/19 10/17/19 09:14 10:43 11:15 Temperature 102.6 F H 100.6 F H Pulse Rate 107 H 92 Respiratory 21 16 20 Rate Blood Pressure 181/82 O2 Sat by Pulse 96 96 Oximetry Medical Decision Making - Medical Decision Making I did discuss findings with the patient. Also with Dr. Tello. Patient will be discharged due to the fever in elderly white blood cell count patient will be placed on azithromycin. Covid test is pending. - Lab Data Result diagrams: 10/17/19 09:30 10/17/19 09:30 Lab Results 10/17/19 10/17/19 10/17/19 Range/Units 09:30 09:30 09:30 WBC 15.5 H (3.8-10.6) k/uL RBC 5.02 (4.30-5.90) m/uL Hgb 14.9 (13.0-17.5) gm/dL Hct 43.9 (39.0-53.0) % MCV 87.4 (80.0-100.0) fL MCH 29.6 (25.0-35.0) pg MCHC 33.9 (31.0-37.0) g/dL RDW 13.4 (11.5-15.5) % Plt Count 161 (150-450) k/uL Neutrophils % 80 % Lymphocytes % 10 % Monocytes % 7 % Eosinophils % 1 % Basophils % 0 % Neutrophils # 12.4 H (1.3-7.7) k/uL Lymphocytes # 1.5 (1.0-4.8) k/uL Monocytes # 1.1 H (0-1.0) k/uL Eosinophils # 0.1 (0-0.7) k/uL Basophils # 0.0 (0-0.2) k/uL Sodium 136 L (137-145) mmol/L Potassium 4.5 (3.5-5.1) mmol/L Chloride 104 (98-107) mmol/L Carbon Dioxide 23 (22-30) mmol/L Anion Gap 9 mmol/L BUN 14 (9-20) mg/dL Creatinine 0.88 (0.66-1.25) mg/dL Est GFR (CKD-EPI)AfAm >90 (>60 ml/min/1.73 sqM) Est GFR (CKD-EPI)NonAf >90 (>60 ml/min/1.73 sqM) Glucose 123 H (74-99) mg/dL Plasma Lactic Acid Joey 1.7 (0.7-2.0) mmol/L Calcium 9.0 (8.4-10.2) mg/dL Magnesium 2.0 (1.6-2.3) mg/dL Total Bilirubin 1.2 (0.2-1.3) mg/dL AST 39 (17-59) U/L ALT 50 H (4-49) U/L Alkaline Phosphatase 50 (38-126) U/L Creatine Kinase 159 (55-170) U/L Troponin I (0.000-0.034) ng/mL NT-Pro-B Natriuret Pep pg/mL Total Protein 6.8 (6.3-8.2) g/dL Albumin 4.4 (3.5-5.0) g/dL Influenza Type A RNA (Not Detectd) Influenza Type B (PCR) (Not Detectd) 10/17/19 10/17/19 10/17/19 Range/Units 09:30 09:30 09:30 WBC (3.8-10.6) k/uL RBC (4.30-5.90) m/uL Hgb (13.0-17.5) gm/dL Hct (39.0-53.0) % MCV (80.0-100.0) fL MCH (25.0-35.0) pg MCHC (31.0-37.0) g/dL RDW (11.5-15.5) % Plt Count (150-450) k/uL Neutrophils % % Lymphocytes % % Monocytes % % Eosinophils % % Basophils % % Neutrophils # (1.3-7.7) k/uL Lymphocytes # (1.0-4.8) k/uL Monocytes # (0-1.0) k/uL Eosinophils # (0-0.7) k/uL Basophils # (0-0.2) k/uL Sodium (137-145) mmol/L Potassium (3.5-5.1) mmol/L Chloride (98-107) mmol/L Carbon Dioxide (22-30) mmol/L Anion Gap mmol/L BUN (9-20) mg/dL Creatinine (0.66-1.25) mg/dL Est GFR (CKD-EPI)AfAm (>60 ml/min/1.73 sqM) Est GFR (CKD-EPI)NonAf (>60 ml/min/1.73 sqM) Glucose (74-99) mg/dL Plasma Lactic Acid Joey (0.7-2.0) mmol/L Calcium (8.4-10.2) mg/dL Magnesium (1.6-2.3) mg/dL Total Bilirubin (0.2-1.3) mg/dL AST (17-59) U/L ALT (4-49) U/L Alkaline Phosphatase (38-126) U/L Creatine Kinase (55-170) U/L Troponin I <0.012 (0.000-0.034) ng/mL NT-Pro-B Natriuret Pep 46 pg/mL Total Protein (6.3-8.2) g/dL Albumin (3.5-5.0) g/dL Influenza Type A RNA Not Detected (Not Detectd) Influenza Type B (PCR) Not Detected (Not Detectd) - EKG Data -: EKG Interpreted by Me EKG shows normal: sinus rhythm EKG Comments: Sinus tachycardia rate of 101. Interval 158 QRS duration 100 QT since QTC 348/451 evidence a left exodeviation pulmonary disease pattern incomplete right bundle-branch block - Radiology Data Radiology results: report reviewed (I did review the imaging and report no acute findings.), image reviewed Disposition Clinical Impression: Febrile illness, acute, Leukocytosis, Bronchitis Disposition: HOME SELF-CARE Condition: Good Instructions (If sedation given, give patient instructions): Fever in Adults (ED), Acute Bronchitis (ED), Leukocytosis (ED) Additional Instructions: [id number] Tylenol for pain or fever. Prescriptions: Albuterol Inhaler [Ventolin Hfa Inhaler] 2 puff INHALATION Q6HR PRN #1 inhaler PRN Reason: Dyspnea Azithromycin [Zithromax Z-pack] 250 mg PO DIRECTED #6 tab Is patient prescribed a controlled substance at d/c from ED?: No Referrals: Collin Nuñez Jr, [Primary Care Provider] - 1-2 days
[2019-10-17 09:49] LABS: ALT 50 U/L (4-49); AST 39 U/L (17-59); African American GFR (CKD) >90 (>60 ml/min/1.73 sqM); Albumin 4.4 g/dL (3.5-5.0); Alkaline Phosphatase 50 U/L (38-126); Anion Gap 9 mmol/L; Blood Urea Nitrogen 14 mg/dL (9-20); Carbon Dioxide 23 mmol/L (22-30); Chloride 104 mmol/L (98-107); Creatine Kinase 159 U/L (55-170); Glucose 123 mg/dL (74-99); Non-African American GFR(CKD) >90 (>60 ml/min/1.73 sqM); Potassium 4.5 mmol/L (3.5-5.1); Sodium 136 mmol/L (137-145); Total Bilirubin 1.2 mg/dL (0.2-1.3); Total Protein 6.8 g/dL (6.3-8.2)
[2019-10-17] MEDS ORDERED: ACETAMINOPHEN TAB 500 MG TAB PO STA (10:07)
[2019-10-17 10:22] LABS: Basophils % (A) 0 %; Eosinophils # (A) 0.1 k/uL (0-0.7); Eosinophils % (A) 1 %; HCT 43.9 % (39.0-53.0); HGB 14.9 gm/dL (13.0-17.5); Lymphocytes # (A) 1.5 k/uL (1.0-4.8); Lymphocytes % (A) 10 %; MCH 29.6 pg (25.0-35.0); MCHC 33.9 g/dL (31.0-37.0); MCV 87.4 fL (80.0-100.0); Mean Platelet Volume 7.4; Monocytes # (A) 1.1 k/uL (0-1.0); Monocytes % (A) 7 %; Neutrophils # (A) 12.4 k/uL (1.3-7.7); Neutrophils % (A) 80 %; Platelet Count 161 k/uL (150-450); RBC 5.02 m/uL (4.30-5.90); RDW 13.4 % (11.5-15.5); WBC 15.5 k/uL (3.8-10.6)
--- NOTE | 2019-10-17 10:42 | XR ---
EXAMINATION TYPE: XR chest 1V portable DATE OF EXAM: 10/17/2019 COMPARISON: 10/09/2012 INDICATION: Difficulty breathing. Fever, short of breath TECHNIQUE: Single frontal view of the chest is obtained. FINDINGS: The heart size is normal. The pulmonary vasculature is normal. The lungs are clear. IMPRESSION: 1. No acute pulmonary process.
[2019-10-17] MEDS ORDERED: AZITHROMYCIN 500 MG TAB PO STA (11:38)
[2019-10-17 12:26] VITALS: BP 152/90; PULSE 91; RESP 18; TEMP 98.5
== END 2019-10-17 12:26 | disposition home or self-care (01) ==
LOC: EC 09:11
DX: J40 Bronchitis, not specified as acute or chronic (principal); D72.829 Elevated white blood cell count, unspecified; Z03.818 Encounter for observation for suspected exposure to other biological agents ruled out; M19.90 Unspecified osteoarthritis, unspecified site; Z88.5 Allergy status to narcotic agent; Z79.82 Long term (current) use of aspirin; Z85.828 Personal history of other malignant neoplasm of skin; Z86.14 Personal history of Methicillin resistant Staphylococcus aureus infection; Z98.890 Other specified postprocedural states
CPT/HCPCS: 36415; 71045; 80053; 82550; 83605; 83735; 83880; 84484; 85025; 87040; 87502; 93005; 96360; 96361; 99285

== ENCOUNTER → 2020-06-07 | Outpatient (CLI) | payer MEDICAID ==
[2020-06-07 15:47] LABS: Basophils % (A) 1 %; Eosinophils # (A) 0.2 k/uL (0-0.7); Eosinophils % (A) 2 %; HCT 42.7 % (39.0-53.0); HGB 14.5 gm/dL (13.0-17.5); Lymphocytes # (A) 2.1 k/uL (1.0-4.8); Lymphocytes % (A) 27 %; MCH 30.4 pg (25.0-35.0); MCV 89.3 fL (80.0-100.0); Mean Platelet Volume 7.1; Monocytes # (A) 0.7 k/uL (0-1.0); Monocytes % (A) 9 %; Neutrophils # (A) 4.5 k/uL (1.3-7.7); Neutrophils % (A) 58 %; Platelet Count 160 k/uL (150-450); RBC 4.78 m/uL (4.30-5.90); RDW 13.4 % (11.5-15.5); WBC 7.6 k/uL (3.8-10.6)
[2020-06-07 16:06] LABS: Potassium 4.2 mmol/L (3.5-5.1)
== END | disposition home or self-care (01) ==
LOC: LABPAT 14:55
PROVIDERS: ATTEND Orthopaedic Surgery
DX: Z01.812 Encounter for preprocedural laboratory examination (principal); M23.91 Unspecified internal derangement of right knee
CPT/HCPCS: 80051; 85025

== ENCOUNTER 2020-06-12 06:15 | Day surgery (SDC) | payer MEDICAID ==
[2020-06-07 14:49] VITALS: BMI 45.0
--- NOTE | 2020-06-11 15:28 | HP ---
HISTORY AND PHYSICAL DATE OF SURGERY: 06/12/2020 Rob Swan is a 59-year-old gentleman seen with progressive right knee pain. We discussed options for treatment. He elected to proceed with right knee arthroscopy. Consent was obtained. PAST MEDICAL HISTORY: Noncontributory. PAST SURGICAL HISTORY: Facial reconstructive surgery, right shoulder arthroscopy, left knee arthroscopy, bilateral foot surgery. DAILY MEDICATIONS: Tylenol, multivitamin, aspirin. ALLERGIES: MORPHINE. SOCIAL HISTORY: Denies current tobacco use. PHYSICAL EVALUATION OF THE RIGHT KNEE: Range of motion 0-120. Mild effusion. Tenderness medial joint line. Positive medial Barbara's. Ligaments stable. Hip rotation without pain. Distal neurovascular exam intact. RADIOGRAPHS: Right knee revealed mild osteoarthritic changes. IMPRESSION: Internal derangement, right knee with medial meniscal tear. PLAN: Right knee arthroscopy with partial meniscectomy with partial synovectomy and debridement. MMODL / IJN: [id number] /
[~2020-06-12 06:15] MED LIST changes: -DEXAMETHASONE SOD PHOSPHATE 10 MG/ML 1 ML VIAL IV ONE; +LACTATED RINGERS 1,000 ML IV SCH; -LIDOCAINE 1% 20 ML VIAL (10MG/ML) FOR IV START INTRADERMA PRN; +MIDAZOLAM 2 MG/2 ML VIAL IV PRN; -ONDANSETRON 4 MG/2 ML VIAL IVP ONE; +ONDANSETRON 4 MG/2 ML VIAL IVP PRN; -Pre Op ABX Message 1 EACH MISC MISCELLANE ONE; +ceFAZolin 3 GM in SODIUM CHLORIDE 0.9% 100 ML IVPB PRN; +fentaNYL (PF) 50 MCG/ML 2 ML AMP IV PRN; +fentaNYL (PF) 50 MCG/ML 2 ML AMP IVP PRN
[2020-06-12] MEDS ORDERED: ONDANSETRON 4 MG/2 ML VIAL ONE (06:49)
[2020-06-12] MEDS ORDERED: LIDOCAINE 1% (10MG/ML) FOR IV START INTRADERMA ONE (06:58)
[2020-06-12] MEDS ORDERED: DEXAMETHASONE SOD PHOSPHATE 4 MG/ML 1 ML VIAL IVP ONE (07:00)
[2020-06-12] MEDS ORDERED: ONDANSETRON 4 MG/2 ML VIAL IVP ONE (07:00)
[2020-06-12] MEDS ORDERED: MIDAZOLAM 2 MG/2 ML VIAL IVP ONE (07:11)
[2020-06-12] MEDS ORDERED: LIDOCAINE 1% INJ 10MG/ML (20 ML MDV) ONE (07:20)
[2020-06-12] MEDS ORDERED: SUCCINYLCHOLINE CHLORIDE VIAL 200 MG/10 ML VIAL IV ONE (07:20)
[2020-06-12] MEDS ORDERED: MIDAZOLAM 2 MG/2 ML VIAL ONE (07:20)
[2020-06-12] MEDS ORDERED: HYDROmorphone (PF) 1 MG/ML ONE (07:20)
[2020-06-12] MEDS ORDERED: PROPOFOL 10 MG/ML 20 ML VIAL IV ONE (07:20)
[2020-06-12] MEDS ORDERED: fentaNYL (PF) 50 MCG/ML 2 ML AMP ONE (07:20)
[2020-06-12] MEDS ORDERED: BUPIVACAINE (PF) 0.25% 30 ML VIAL SQ ONE ×2 (07:46→08:07)
[2020-06-12 08:23] VITALS: TEMP 96.9
--- NOTE | 2020-06-12 08:24 | P.OP ---
Date of Procedure: 06/12/20 Preoperative Diagnosis: Internal derangement right knee Postoperative Diagnosis: 1. Tear lateral meniscus right knee 2. 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 Grade 1/2 chondromalacia medial femoral condyle right knee 4. Reactive synovitis medial, lateral and suprapatellar compartments right knee Procedure(s) Performed: 1. Arthroscopic partial lateral meniscectomy right knee 2. Arthroscopic chondroplasty femoral sulcus right knee 3. Arthroscopic chondroplasty medial femoral condyle right knee 4. Arthroscopic partial synovectomy medial, lateral and suprapatellar compartments right knee Anesthesia: CHRISA, local Surgeon: Jeet Lopez Estimated Blood Loss (ml): 7 Pathology: none sent Condition: stable Disposition: PACU Indications for Procedure: 59-year-old gentleman seen with progressive right knee pain. After having treatment options discussed, he elected to proceed with arthroscopy. Operative Findings: see description of procedure Description of Procedure: Patient was taken to the operative suite. Patient underwent a general anesthetic by the department of anesthesia. Patient was given preoperative antibiotics. The right lower extremity was placed in a well-padded arthroscopic leg tiwari. The right leg was prepped and draped in the normal sterile orthopedic fashion. A lateral parapatellar and suprapatellar incision was made. Trochars were inserted. Arthroscopy was initiated. Suprapatellar pouch revealed diffuse thick reactive synovitis. The patellofemoral joint appeared to articulate congruently. There grade 3 chondromalacia of the femoral sulcus with some peripheral osteochondral tears present. The scope was guided into the medial gutter. No loose bodies or plica were identified. The scope was then guided into the medial compartment. A medial parapatellar incision was made. Trocar inserted followed by probe. There was an area of grade 1/2 chondromalacia weightbearing surface medial femoral condyle with some small osteochondral flap tears present. The medial meniscus was thoroughly probed and no tears were identified. There was some thick reactive synovitis anteriorly. A motorize shaver was introduced and I performed a chondroplasty of the medial femoral condyle. I now performed a partial synovectomy decompressing the reactive synovitis. The probe was reintroduced noting good stability about the residual osteochondral surface. There was good decompression of the synovitis anteriorly. Scope and probe were then guided into the intercondylar notch. Cruciates were identified, probed and found to be stable. The scope and probe were then guided into lateral compartment. There was a radial tear involving the anterior horn lateral meniscus. There was a root area tear of the posterior horn lateral meniscus. There were grade 1 chondromalacia changes of lateral compartment with no osteochondral tears present. Was thick reactive synovitis anteriorly. I performed a partial lateral meniscectomy involving both the anterior and posterior horns getting down to stable meniscal tissue. I performed a partial synovectomy decompressing reactive synovitis. There was good decompression of the synovitis. The residual meniscus was thoroughly probed and found to be stable. The scope was in guided back into the suprapatellar compartment. I introduced a motorized shaver into the super patellar compartment. I debrided some piecemeal fragments of meniscus I encountered. I performed a chondroplasty of the femoral sulcus getting down to stable osteochondral tissue. I performed a partial synovectomy decompressing the reactive synovitis. The shaver was removed. The residual osteochondral surface of the femoral sulcus was stable. It was good decompression of synovitis. I now took one more look on the entire knee, no residual debris. Instruments were now removed from the joint. The joint was infiltrated with .25% Marcaine. Steri-Strips were applied to the portal sites. Sterile dressings were applied. The patient was placed into a SOY hose. No tourniquet was utilized. The patient was awakened, transferred to a bed and taken to recovery stable satisfactory condition.
[2020-06-12] MEDS ORDERED: HYDROcodone/APAP 7.5-325MG 1 EACH TAB ONE (09:37)
[2020-06-12] MEDS ORDERED: HYDROcodone/APAP 7.5-325MG 1 EACH TAB PO ONE (09:45)
[2020-06-12 10:01] VITALS: PULSE 73
[2020-06-12 10:09] VITALS: BP 137/85; RESP 20
== END 2020-06-12 10:47 | disposition home or self-care (01) ==
LOC: OR 06:15
PROVIDERS: ATTEND Orthopaedic Surgery
DX: M23.241 Derangement of anterior horn of lateral meniscus due to old tear or injury, right knee (principal); M65.861 Other synovitis and tenosynovitis, right lower leg; M94.261 Chondromalacia, right knee; G47.33 Obstructive sleep apnea (adult) (pediatric); E66.01 Morbid (severe) obesity due to excess calories; Z98.890 Other specified postprocedural states; Z79.82 Long term (current) use of aspirin; Z79.899 Other long term (current) drug therapy; Z88.5 Allergy status to narcotic agent; Z85.828 Personal history of other malignant neoplasm of skin; Z68.42 Body mass index [BMI] 45.0-49.9, adult
CPT/HCPCS: 29881; J2250; J0330; J1100; J0690; J2405; J2001; J3010; J1170; J2704

== ENCOUNTER → 2021-06-16 | Outpatient (CLI) | payer MEDICAID ==
[2021-06-16 16:52] LABS: Potassium 4.1 mmol/L (3.5-5.1)
[2021-06-16 16:58] LABS: Neutrophils % (M) 55 %; Nucleated Red Blood Cells 0 /100 WBC (0-0); Polychromasia Present; Total Cells Counted 100
[2021-06-16 18:35] LABS: Basophils # (A) 0.1 k/uL (0-0.2); Basophils % (A) 1 %; Eosinophils # (A) 0.2 k/uL (0-0.7); Eosinophils # (M) 0.16 k/uL (0-0.7); Eosinophils % (A) 2 %; HCT 40.5 % (39.0-53.0); Lymphocytes # (A) 2.8 k/uL (1.0-4.8); Lymphocytes # (M) 2.53 k/uL (1.0-4.8); Lymphocytes % (A) 36 %; MCH 30.5 pg (25.0-35.0); MCHC 34.6 g/dL (31.0-37.0); MCV 88.1 fL (80.0-100.0); Mean Platelet Volume 9.2; Monocytes # (A) 0.6 k/uL (0-1.0); Monocytes # (M) 0.87 k/uL (0-1.0); Monocytes % (A) 8 %; Neutrophils # (M) 4.35 k/uL (1.3-7.7); Neutrophils % (A) 51 %; Platelet Count 163 k/uL (150-450); RDW 13.3 % (11.5-15.5); WBC 7.9 k/uL (3.8-10.6)
== END | disposition home or self-care (01) ==
LOC: LABPAT 15:35
PROVIDERS: ATTEND Orthopaedic Surgery
DX: Z01.818 Encounter for other preprocedural examination (principal); M23.91 Unspecified internal derangement of right knee; R94.31 Abnormal electrocardiogram [ECG] [EKG]
CPT/HCPCS: 80051; 85025; 93005

== ENCOUNTER 2021-06-19 08:21 | Day surgery (SDC) | payer MEDICAID ==
[2021-06-17 09:02] VITALS: BMI 45.0
--- NOTE | 2021-06-18 20:23 | HP ---
HISTORY AND PHYSICAL DATE OF SURGERY: 06/19/2021 Rob Swan is a 60-year-old patient seen with right knee pain consistent with meniscal tear, failing conservative treatment measures. We discussed options for treatment. He elected to proceed with right knee arthroscopy. Consent was obtained. PAST MEDICAL HISTORY: Noncontributory. PAST SURGICAL HISTORY: Facial reconstruction, right shoulder arthroscopy, right knee arthroscopy, left knee arthroscopy. DAILY MEDICATIONS: Tylenol, aspirin. ALLERGIES: MORPHINE. SOCIAL HISTORY: He denies current tobacco use. PHYSICAL EVALUATION OF THE RIGHT KNEE: His range of motion is negative 3/4 to 115 degrees. Mild effusion. Tenderness, medial joint line. Positive medial Barbara's. Ligaments are stable. Hip rotation is without pain. His distal neurovascular exam is intact. Right knee radiographs revealed moderate osteoarthritic changes. IMPRESSION: Internal derangement of right knee with medial meniscal tear. PLAN: Right knee arthroscopy with partial meniscectomy and debridement. MMODL / IJN: [id number] /
[~2021-06-19 08:21] MED LIST changes: +.fentaNYL (PF) 50 MCG/ML AMP IV PRN; -HYDROmorphone 0.5 MG/0.5 ML SYRINGE IVP PRN; +LIDOCAINE 1% (10MG/ML) FOR IV START INTRADERMA PRN; -MIDAZOLAM 2 MG/2 ML VIAL IV PRN; +ONDANSETRON 4 MG/2 ML VIAL IVP ONE; -ONDANSETRON 4 MG/2 ML VIAL IVP PRN; -fentaNYL (PF) 50 MCG/ML 2 ML AMP IV PRN; -fentaNYL (PF) 50 MCG/ML 2 ML AMP IVP PRN
[2021-06-19] MEDS ORDERED: DEXAMETHASONE SOD PHOSPHATE 4 MG/ML 1 ML VIAL IVP ONE (08:47)
[2021-06-19] MEDS ORDERED: MIDAZOLAM 2 MG/2 ML VIAL IVP ONE (09:14)
[2021-06-19] MEDS ORDERED: SUCCINYLCHOLINE CHLORIDE VIAL 200 MG/10 ML VIAL IV ONE (09:15)
[2021-06-19] MEDS ORDERED: PROPOFOL 10 MG/ML 20 ML VIAL IV ONE (09:15)
[2021-06-19] MEDS ORDERED: MIDAZOLAM 2 MG/2 ML VIAL ONE (09:15)
[2021-06-19] MEDS ORDERED: .fentaNYL (PF) 50 MCG/ML AMP ONE (09:15)
[2021-06-19] MEDS ORDERED: LIDOCAINE 1% INJ 10MG/ML (20 ML MDV) ONE (09:15)
[2021-06-19] MEDS ORDERED: BUPIVACAINE (PF) 0.25% 30 ML VIAL SQ ONE ×2 (09:31→09:55)
[2021-06-19 10:13] VITALS: RESP 16; TEMP 97.2
--- NOTE | 2021-06-19 10:15 | P.OP ---
Date of Procedure: 06/19/21 Preoperative Diagnosis: Internal derangement right knee Postoperative Diagnosis: 1. Tear medial meniscus right knee 2. Reactive synovitis medial, lateral and suprapatellar compartments right knee Procedure(s) Performed: 1. Arthroscopic partial medial meniscectomy right knee 2. Arthroscopic partial synovectomy medial, lateral and suprapatellar compartments right knee Anesthesia: CHRISA, local Surgeon: Jeet Lopez Estimated Blood Loss (ml): 7 Pathology: none sent Condition: stable Disposition: PACU Indications for Procedure: 60-year-old patient seen with progressive right knee pain. After treatment options were discussed, he elected to proceed with arthroscopy. Operative Findings: see description of procedure Description of Procedure: Patient was taken to the operative suite. Patient underwent a general anest hetic by the department of anesthesia. Patient was given preoperative antibiotics. The right lower extremity was placed in a well-padded arthroscopic leg tiwari. The right leg was prepped and draped in the normal sterile orthopedic fashion. A lateral parapatellar and suprapatellar incision was made. Trochars were inserted. Arthroscopy was initiated. Suprapatellar pouch revealed diffuse thick reactive synovitis. The patellofemoral joint appeared to articulate congruently. There with grade 3 chondromalacia of the patella with no osteochondral tears present. The scope was guided into the medial gutter. No loose bodies or plica were identified. The scope was then guided into the medial compartment. A medial parapatellar incision was made. Trocar inserted followed by probe. There was a complex tear involving the posterior horn medial meniscus. There were grade 1 chondromalacia changes of the medial compartment with no osteochondral tears present. There was thick reactive synovitis anteriorly. I performed a partial medial meniscectomy getting down to stable meniscal tissue. I performed a partial synovectomy decompressing the thick reactive synovitis anteriorly. The residual meniscus was probed and found to be stable. There was good decompression of the synovitis. Scope and probe were then guided into the intercondylar notch. Cruciates were identified, probed and found to be stable. The scope and probe were then guided into lateral compartment. The lateral meniscus was probed and it was found to be stable. There were grade 1 chondromalacia changes of the lateral compartment with no osteochondral tears present. There was thick reactive synovitis anteriorly. I introduced a motorized shaver and performed a partial synovectomy. Shaver was removed. There was good decompression of the synovitis. The scope was in guided back into the suprapatellar compartment. I introduced a motorized shaver into the super patellar compartment. I debrided some piecemeal fragments of meniscus that I encountered. I performed a partial synovectomy. Shaver was removed. There was good decompression of the synovitis. I now took one more look around the entire knee, no residual debris. Instruments were now removed from the joint. The joint was infiltrated with .25% Marcaine. Steri-Strips were applied to the portal sites. Sterile dressings were applied. The patient was placed into a SOY hose. No tourniquet was utilized. The patient was awakened, transferred to a bed and taken to recovery stable satisfactory condition.
[2021-06-19] MEDS ORDERED: HYDROcodone/APAP 7.5-325MG 1 EACH TAB ONE (11:37)
[2021-06-19] MEDS ORDERED: HYDROcodone/APAP 7.5-325MG 1 EACH TAB PO ONE (11:39)
[2021-06-19 11:56] VITALS: BP 177/75; PULSE 80
== END 2021-06-19 12:20 | disposition home or self-care (01) ==
LOC: OR 08:21
PROVIDERS: ATTEND Orthopaedic Surgery
DX: S83.241A Other tear of medial meniscus, current injury, right knee, initial encounter (principal); G47.33 Obstructive sleep apnea (adult) (pediatric); E66.01 Morbid (severe) obesity due to excess calories; M65.9 Synovitis and tenosynovitis, unspecified; Z79.82 Long term (current) use of aspirin; Z88.5 Allergy status to narcotic agent
CPT/HCPCS: 29881; 29876; J2250; J0330; J1100; J0690; J2405; J2001; J3010; J2704

== ENCOUNTER 2022-02-01 11:10 | Observation (INO) | payer MEDICAID ==
--- NOTE | 2022-02-01 12:07 | ED ---
General Adult HPI - General Chief complaint: Shortness of Breath Stated complaint: AUGUST,Sweating Time Seen by Provider: 02/01/22 11:30 Source: patient, RN notes reviewed, old records reviewed Mode of arrival: ambulatory Limitations: no limitations - History of Present Illness Initial comments: This is a 61-year-old male with no significant past medical history. Patient comes in today stating he was discharged felt fine and all of a sudden he felt like he was short of breath became very diaphoretic. Patient denies any chest pain. Patient states this felt tight like it was difficult to get a full breath. Patient states she went home and tried to rest but the shortness of breath continues I decided to come to the emergency department. Patient denies any recent fever chills or cough. Patient denies any headache or lightheadedness. Patient states the shortness breath is slightly better but not much. Patient denies any increased swelling to the legs or calf tenderness. - Related Data Home Medications Medication Instructions Recorded Confirmed Aspirin 81 mg PO DAILY 04/04/14 06/19/21 Multivitamin [Men's Multi-Vitamin] 1 each PO DAILY 04/04/14 06/19/21 Previous Rx's Medication Instructions Recorded HYDROcodone/APAP 7.5-325MG [Benson 1 each PO Q6HR PRN #21 tab 06/19/21 7.5] Allergies Allergy/AdvReac Type Severity Reaction Status Date / Time morphine AdvReac Nausea & Verified 06/19/21 08:44 Vomiting Review of Systems ROS Statement: Those systems with pertinent positive or pertinent negative responses have been documented in the HPI. ROS Other: All systems not noted in ROS Statement are negative. Past Medical History Past Medical History: Cancer, Osteoarthritis (OA) Additional Past Medical History / Comment(s): skin cancer History of Any Multi-Drug Resistant Organisms: MRSA Date of last positivie culture/infection: 2005 MDRO Source:: BILAT LEGS Past Surgical History: Orthopedic Surgery Additional Past Surgical History / Comment(s): 08/21 FACIAL RECONSTRUCTION R/T basal cell CANCER, right rotator cuff repair, left knee arthroscopy, bilat antonino bunion removal Past Anesthesia/Blood Transfusion Reactions: No Reported Reaction Past Psychological History: No Psychological Hx Reported Smoking Status: Former smoker - Past Family History Mother Family Medical History: No Reported History Father Family Medical History: Cancer General Exam - General Exam Comments Initial Comments: GENERAL: Patient is well-developed and well-nourished. Patient is nontoxic and well- hydrated and is in mild distress. ENT: Neck is soft and supple. No significant lymphadenopathy is noted. Oropharynx is clear. Moist mucous membranes. Neck has full range of motion without eliciting any pain. EYES: The sclera were anicteric and conjunctiva were pink and moist. Extraocular movements were intact and pupils were equal round and reactive to light. Eyelids were unremarkable. PULMONARY: Unlabored respirations. Good breath sounds bilaterally. No audible rales rhonchi or wheezing was noted. CARDIOVASCULAR: There is a regular rate and rhythm without any murmurs gallops or rubs. ABDOMEN: Soft and nontender with normal bowel sounds. SKIN: Skin is clear with no lesions or rashes and otherwise unremarkable. NEUROLOGIC: Patient is alert and oriented x3. Cranial nerves II through XII are grossly intact. Motor and sensory are also intact. Normal speech, volume and content. Symmetrical smile. MUSCULOSKELETAL: Normal extremities with adequate strength and full range of motion. 1+ edema bilaterally LYMPHATICS: No significant lymphadenopathy is noted PSYCHIATRIC: Normal psychiatric evaluation. Limitations: no limitations Course Vital Signs 02/01/22 02/01/22 11:17 12:12 Temperature 98.1 F Pulse Rate 66 Respiratory 19 18 Rate Blood Pressure 184/100 O2 Sat by Pulse 95 Oximetry Medical Decision Making - Medical Decision Making EKG shows sinus rhythm at 73 bpm DC interval 178 QRSs 118 QT interval 396 QTC is 422. EKG shows no ST segment elevation or depression Chest x-ray shows no acute abnormality. I went back into the room to reevaluate the patient and the patient felt considerably better I indicated to the patient I thought he should stay because multiple episodes of dyspnea and diaphoresis was concerning and he agreed. I spoke with Dr. Savannah Nuñez he agreed to admit the patient admitted the patient wrote admitting orders - Lab Data Result diagrams: 02/01/22 12:04 02/01/22 12:04 Lab Results 02/01/22 02/01/22 02/01/22 Range/Units 12:04 12:04 12:04 WBC 6.9 (3.8-10.6) k/uL RBC 4.76 (4.30-5.90) m/uL Hgb 13.9 (13.0-17.5) gm/dL Hct 42.1 (39.0-53.0) % MCV 88.4 (80.0-100.0) fL MCH 29.2 (25.0-35.0) pg MCHC 33.0 (31.0-37.0) g/dL RDW 13.5 (11.5-15.5) % Plt Count 130 L (150-450) k/uL MPV 8.4 Neutrophils % 50 % Lymphocytes % 37 % Monocytes % 8 % Eosinophils % 2 % Basophils % 0 % Neutrophils # 3.4 (1.3-7.7) k/uL Lymphocytes # 2.6 (1.0-4.8) k/uL Monocytes # 0.6 (0-1.0) k/uL Eosinophils # 0.1 (0-0.7) k/uL Basophils # 0.0 (0-0.2) k/uL PT 10.3 (9.0-12.0) sec INR 0.9 (<1.2) APTT 23.2 (22.0-30.0) sec D-Dimer 0.41 (<0.60) mg/L FEU Sodium 138 (137-145) mmol/L Potassium 4.0 (3.5-5.1) mmol/L Chloride 105 (98-107) mmol/L Carbon Dioxide 27 (22-30) mmol/L Anion Gap 6 mmol/L BUN 14 (9-20) mg/dL Creatinine 0.83 (0.66-1.25) mg/dL Est GFR (CKD-EPI)AfAm >90 (>60 ml/min/1.73 sqM) Est GFR (CKD-EPI)NonAf >90 (>60 ml/min/1.73 sqM) Glucose 90 (74-99) mg/dL Plasma Lactic Acid Joey (0.7-2.0) mmol/L Calcium 8.8 (8.4-10.2) mg/dL Magnesium 2.0 (1.6-2.3) mg/dL Total Bilirubin 0.6 (0.2-1.3) mg/dL AST 33 (17-59) U/L ALT 36 (4-49) U/L Alkaline Phosphatase 49 (38-126) U/L Troponin I (0.000-0.034) ng/mL NT-Pro-B Natriuret Pep pg/mL Total Protein 6.3 (6.3-8.2) g/dL Albumin 4.2 (3.5-5.0) g/dL Coronavirus (PCR) (Not Detectd) 02/01/22 02/01/22 02/01/22 Range/Units 12:04 12:04 12:04 WBC (3.8-10.6) k/uL RBC (4.30-5.90) m/uL Hgb (13.0-17.5) gm/dL Hct (39.0-53.0) % MCV (80.0-100.0) fL MCH (25.0-35.0) pg MCHC (31.0-37.0) g/dL RDW (11.5-15.5) % Plt Count (150-450) k/uL MPV Neutrophils % % Lymphocytes % % Monocytes % % Eosinophils % % Basophils % % Neutrophils # (1.3-7.7) k/uL Lymphocytes # (1.0-4.8) k/uL Monocytes # (0-1.0) k/uL Eosinophils # (0-0.7) k/uL Basophils # (0-0.2) k/uL PT (9.0-12.0) sec INR (<1.2) APTT (22.0-30.0) sec D-Dimer (<0.60) mg/L FEU Sodium (137-145) mmol/L Potassium (3.5-5.1) mmol/L Chloride (98-107) mmol/L Carbon Dioxide (22-30) mmol/L Anion Gap mmol/L BUN (9-20) mg/dL Creatinine (0.66-1.25) mg/dL Est GFR (CKD-EPI)AfAm (>60 ml/min/1.73 sqM) Est GFR (CKD-EPI)NonAf (>60 ml/min/1.73 sqM) Glucose (74-99) mg/dL Plasma Lactic Acid Joey 0.9 (0.7-2.0) mmol/L Calcium (8.4-10.2) mg/dL Magnesium (1.6-2.3) mg/dL Total Bilirubin (0.2-1.3) mg/dL AST (17-59) U/L ALT (4-49) U/L Alkaline Phosphatase (38-126) U/L Troponin I <0.012 (0.000-0.034) ng/mL NT-Pro-B Natriuret Pep 79 pg/mL Total Protein (6.3-8.2) g/dL Albumin (3.5-5.0) g/dL Coronavirus (PCR) (Not Detectd) 02/01/22 Range/Units 12:04 WBC (3.8-10.6) k/uL RBC (4.30-5.90) m/uL Hgb (13.0-17.5) gm/dL Hct (39.0-53.0) % MCV (80.0-100.0) fL MCH (25.0-35.0) pg MCHC (31.0-37.0) g/dL RDW (11.5-15.5) % Plt Count (150-450) k/uL MPV Neutrophils % % Lymphocytes % % Monocytes % % Eosinophils % % Basophils % % Neutrophils # (1.3-7.7) k/uL Lymphocytes # (1.0-4.8) k/uL Monocytes # (0-1.0) k/uL Eosinophils # (0-0.7) k/uL Basophils # (0-0.2) k/uL PT (9.0-12.0) sec INR (<1.2) APTT (22.0-30.0) sec D-Dimer (<0.60) mg/L FEU Sodium (137-145) mmol/L Potassium (3.5-5.1) mmol/L Chloride (98-107) mmol/L Carbon Dioxide (22-30) mmol/L Anion Gap mmol/L BUN (9-20) mg/dL Creatinine (0.66-1.25) mg/dL Est GFR (CKD-EPI)AfAm (>60 ml/min/1.73 sqM) Est GFR (CKD-EPI)NonAf (>60 ml/min/1.73 sqM) Glucose (74-99) mg/dL Plasma Lactic Acid Joey (0.7-2.0) mmol/L Calcium (8.4-10.2) mg/dL Magnesium (1.6-2.3) mg/dL Total Bilirubin (0.2-1.3) mg/dL AST (17-59) U/L ALT (4-49) U/L Alkaline Phosphatase (38-126) U/L Troponin I (0.000-0.034) ng/mL NT-Pro-B Natriuret Pep pg/mL Total Protein (6.3-8.2) g/dL Albumin (3.5-5.0) g/dL Coronavirus (PCR) Not Detected (Not Detectd) Disposition Clinical Impression: Dyspnea Disposition: ADMITTED IP TO THIS HOSP Referrals: Collin Nuñez Jr, [Primary Care Provider] - 1-2 days Time of Disposition: 13:16
--- NOTE | 2022-02-01 12:08 | XR ---
EXAMINATION TYPE: XR chest 2V DATE OF EXAM: 02/01/2022 COMPARISON: 10/17/2019 HISTORY: Shortness of breath TECHNIQUE: Frontal and lateral views of the chest are obtained. FINDINGS: Scattered senescent parenchymal changes noted. Hyperinflation compatible with COPD. No evidence for infiltrate. No evidence for atelectasis. Heart size is stable. Mediastinal structures are stable and grossly unremarkable. No evidence for hilar prominence. Degenerative changes dorsal spine. IMPRESSION: 1. No evidence for acute pulmonary disease.
[2022-02-01 12:13] LABS: Basophils % (A) 0 %; Eosinophils # (A) 0.1 k/uL (0-0.7); Eosinophils % (A) 2 %; HCT 42.1 % (39.0-53.0); HGB 13.9 gm/dL (13.0-17.5); Lymphocytes # (A) 2.6 k/uL (1.0-4.8); Lymphocytes % (A) 37 %; MCH 29.2 pg (25.0-35.0); MCV 88.4 fL (80.0-100.0); Mean Platelet Volume 8.4; Monocytes # (A) 0.6 k/uL (0-1.0); Monocytes % (A) 8 %; Neutrophils # (A) 3.4 k/uL (1.3-7.7); Neutrophils % (A) 50 %; Platelet Count 130 k/uL (150-450); RBC 4.76 m/uL (4.30-5.90); RDW 13.5 % (11.5-15.5); WBC 6.9 k/uL (3.8-10.6)
[2022-02-01 12:22] LABS: ALT 36 U/L (4-49); AST 33 U/L (17-59); African American GFR (CKD) >90 (>60 ml/min/1.73 sqM); Albumin 4.2 g/dL (3.5-5.0); Alkaline Phosphatase 49 U/L (38-126); Anion Gap 6 mmol/L; Blood Urea Nitrogen 14 mg/dL (9-20); Calcium 8.8 mg/dL (8.4-10.2); Carbon Dioxide 27 mmol/L (22-30); Chloride 105 mmol/L (98-107); Glucose 90 mg/dL (74-99); Non-African American GFR(CKD) >90 (>60 ml/min/1.73 sqM); Sodium 138 mmol/L (137-145); Total Bilirubin 0.6 mg/dL (0.2-1.3); Total Protein 6.3 g/dL (6.3-8.2)
[2022-02-01 12:28] LABS: INR 0.9 (<1.2); Partial Thromboplastin Time 23.2 sec (22.0-30.0); Prothrombin Time 10.3 sec (9.0-12.0)
[2022-02-01] MEDS ORDERED: NITROGLYCERIN SL TABS 0.4 MG TAB SUBLINGUAL PRN (13:16)
--- NOTE | 2022-02-01 13:59 | P.CRDCN ---
History of Present Illness History of present illness: This is Dr. Castellano dictating a consult on this patient The patient was interviewed and examined IMPRESSION / ASSESSMENT: Symptoms of feeling hot, diaphoresis and difficulty breathing on 2 separate occasions Elevated blood pressure reading upon admission, one reading only, no history of hypertension Normal twelve-lead EKG incomplete right bundle branch block pattern normal ST segment Normal chest x-ray Low platelet count, reason unclear PLAN: Repeat platelet count tomorrow CT of the aorta and hopefully a reasonable evaluation of the pulmonary arteries in the same study 3 serial troponins Follow-up EKG 2-D echo and Doppler study tomorrow HPI Patient was sitting in [employer]abapt[employer] when he started experiencing intense sweating. He filled with heart and flushed and he found it difficult to breathe His states these he did not appear to be in any yesterday distress He denied being dizzy and lightheaded he denied any discomfort in the belly, chest arm throat or upper back He felt distinctly uncomfortable and therefore got up and went to his car At the moment of getting up he does not claim to be dizzy or lightheaded line at no point did he pass out His symptoms lasted for almost 15-20 minutes and the episode of perspiration recurred as he was driving to the hospital once again He did feel his pulse and he thought it was regular and there is no tachycardia When I examined him his rhythm was regular. I saw 1 PVC on the telemetry He was comfortable and felt his back to his baseline ROS: No fever chills or rigors, no cough, phlegm or expectoration, no nausea, vomiting or diarrhea, no hematuria, dysuria, no musculoskeletal complaints, no strokes or seizures, no skin lesions. EXAMINATION: Initial blood pressure 184 100 mmHg pulse rate in the 60s afebrile Subsequently 135/78 mmHg pulse rate in the 60s normal respirations Radial pulses equal bilaterally regular Breath sounds are clear no rhonchi no crackles Normal heart sounds no murmurs no S3 gallop no rub Pulse ox normal Abdomen soft No lower extremity edema REVIEW OF LABS, ECG & MEDICAL DATA Normal white count, normal hemoglobin of 13.9, low platelet count of 130,000 Low platelet count Normal d-dimer 0.4 Normal electrolytes Normal renal function Normal troponin Normal BNP Liver function tests Nonreactive PCR for coronavirus Past Medical History Past Medical History: Cancer, Osteoarthritis (OA) Additional Past Medical History / Comment(s): skin cancer History of Any Multi-Drug Resistant Organisms: MRSA Date of last positivie culture/infection: 2005 MDRO Source:: BILAT LEGS Past Surgical History: Orthopedic Surgery Additional Past Surgical History / Comment(s): 08/21 FACIAL RECONSTRUCTION R/T basal cell CANCER, right rotator cuff repair, left knee arthroscopy, bilat antonino bunion removal Past Anesthesia/Blood Transfusion Reactions: No Reported Reaction Past Psychological History: No Psychological Hx Reported Smoking Status: Former smoker - Past Family History Mother Family Medical History: No Reported History Father Family Medical History: Cancer Medications and Allergies Home Medications Medication Instructions Recorded Confirmed Type No Known Home Medications 02/01/22 02/01/22 History Allergies Allergy/AdvReac Type Severity Reaction Status Date / Time morphine AdvReac Nausea & Verified 02/01/22 13:46 Vomiting Physical Exam Vitals: Vital Signs Temp Pulse Resp BP Pulse Ox 02/01/22 13:28 67 18 135/78 100 02/01/22 12:12 18 02/01/22 11:17 98.1 F 66 19 184/100 95 Intake and Output 01/31/22 02/01/22 02/01/22 22:59 06:59 14:59 Other: Weight 163.293 kg Results 02/01/22 12:04 02/01/22 12:04 Cardiac Enzymes 02/01/22 02/01/22 Range/Units 12:04 12:04 AST 33 (17-59) U/L Troponin I <0.012 (0.000-0.034) ng/mL Coagulation 02/01/22 Range/Units 12:04 PT 10.3 (9.0-12.0) sec APTT 23.2 (22.0-30.0) sec CBC 02/01/22 Range/Units 12:04 WBC 6.9 (3.8-10.6) k/uL RBC 4.76 (4.30-5.90) m/uL Hgb 13.9 (13.0-17.5) gm/dL Hct 42.1 (39.0-53.0) % Plt Count 130 L (150-450) k/uL Comprehensive Metabolic Panel 02/01/22 Range/Units 12:04 Sodium 138 (137-145) mmol/L Potassium 4.0 (3.5-5.1) mmol/L Chloride 105 (98-107) mmol/L Carbon Dioxide 27 (22-30) mmol/L BUN 14 (9-20) mg/dL Creatinine 0.83 (0.66-1.25) mg/dL Glucose 90 (74-99) mg/dL Calcium 8.8 (8.4-10.2) mg/dL AST 33 (17-59) U/L ALT 36 (4-49) U/L Alkaline Phosphatase 49 (38-126) U/L Total Protein 6.3 (6.3-8.2) g/dL Albumin 4.2 (3.5-5.0) g/dL Current Medications Generic Name Dose Route Start Last Admin Trade Name Freq PRN Reason Stop Dose Admin Aspirin 325 mg 02/02/22 09:00 Aspirin 325 Mg Tab PO DAILY EMELINA Nitroglycerin 0.4 mg 02/01/22 13:16 Nitroglycerin Sl Tabs 0.4 Mg Tab SUBLINGUAL Q5M PRN Chest Pain Intake and Output 01/31/22 02/01/22 02/01/22 22:59 06:59 14:59 Other: Weight 163.293 kg Patient Weight 02/02/22 06:59 Weight 163.293 kg 02/01/22 12:04 02/01/22 12:04
--- NOTE | 2022-02-01 14:58 | CT ---
EXAMINATION TYPE: CT angio thor/abd pel aorta DATE OF EXAM: 02/01/2022 COMPARISON: None HISTORY: dyspnea with diaphoresis CT DLP: 4565.18 mGycm Automated exposure control for dose reduction was used. CONTRAST: Performed without and with IV Contrast, patient injected with 100 mL of Isovue 370. Images obtained from the thoracic inlet to the floor of pelvis without and with the IV contrast. Ther e are Three-D postprocessed images. The lungs are clear of consolidation. No pleural effusion. Heart size is normal. No pericardial effus ion. There is no mediastinal adenopathy. There are no hilar masses. There is normal contrast opacific ation of the pulmonary arteries. No filling defect. Liver spleen pancreas and gallbladder appear intact. Stomach is intact. The bile ducts are not dilate d. There is no adrenal mass. Kidneys have normal size and contour. No hydronephrosis. Ureters are not di lated. Appendix appears normal. There is no retroperitoneal adenopathy. Bladder distends smoothly. No inguinal hernia. The thoracic and lumbar vertebra appear intact. No compression fracture. Sternum is intact. The bony pelvis is intact. Hip joints are intact. The thoracic aorta is intact. There is arterial flow in the celiac artery and superior mesenteric art keely. There is arterial flow in both renal arteries. There is arterial flow in the iliac and femoral a rteries. No evidence of hemodynamic stenosis. No arterial aneurysm or dissection. No contrast extrava sation. There is subcutaneous edema over the posterior lumbar spine. IMPRESSION: Negative CT angiogram of the chest abdomen pelvis. No evidence of pulmonary embolism.
[2022-02-02 08:06] VITALS: RESP 18
[2022-02-02 08:28] LABS: Basophils # (A) 0.04 X 10*3/uL (0.00-0.10); Basophils % (A) 0.5 %; Eosinophils # (A) 0.17 X 10*3/uL (0.04-0.35); Eosinophils % (A) 2.2 %; HCT 42.3 % (39.6-50.0); HGB 13.5 g/dL (13.0-17.0); Immature Grans, Automated 0.3 %; Lymphocytes # (A) 2.87 X 10*3/uL (0.90-5.00); Lymphocytes % (A) 37.3 %; MCH 28.3 pg (27.0-32.0); MCHC 31.9 g/dL (32.0-37.0); MCV 88.7 fL (80.0-97.0); Mean Platelet Volume 12.2 fL (9.5-12.2); Monocytes # (A) 0.87 X 10*3/uL (0.20-1.00); Monocytes % (A) 11.3 %; NRBC Per 100 WBC 0 /100 WBCS (0.0-0.0); Neutrophils # (A) 3.73 X 10*3/uL (1.80-7.70); Neutrophils % (A) 48.4 %; Platelet Count 145 X 10*3/uL (140-440); RBC 4.77 X 10*6/uL (4.40-5.60); RDW 13.4 % (11.5-14.5)
[2022-02-02 08:43] LABS: Chol/HDL Ratio 4.11 Ratio
[2022-02-02] MEDS ORDERED: ASPIRIN 325 MG TAB PO SCH (09:00)
[2022-02-02] MEDS ORDERED: ASPIRIN 81 MG PO SCH (09:00)
[2022-02-02] MEDS ORDERED: ATORVASTATIN 20 MG TAB PO SCH (09:00)
[2022-02-02] MEDS ORDERED: SYMBICORT 80-4.5 MCG INHALER INHALATION SCH (10:28)
[2022-02-02] MEDS ORDERED: ALBUTEROL NEBULIZED 2.5 MG/3 ML INHALATION PRN ×2 (10:28→10:32)
--- NOTE | 2022-02-02 10:41 | P.PN ---
Subjective This is a 61 year old male with no significant past medical history. 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 We have been asked to see the patient in consultation for dyspnea and diaphoresis. Patient presents to the emergency department yesterday with an episode where he was was sitting in [employer] when he started experiencing intense sweating. He filled with heart and flushed and he found it difficult to breathe. His stateed these he did not appear to be in any yesterday distress. He denied being dizzy and lightheaded he denied any abdominal pain, no pain in chest, arm, throat, or upper back. He felt distinctly uncomfortable and therefore got up and went to his car. At the moment of getting up he does not claim to be dizzy or lightheadedness. He did not lose consciousness, no syncope. His symptoms lasted for almost 15-20 minutes and the episode of perspiration recurred as he was driving to the hospital once again. Patient seen and examined at bedside, no acute distress. Sitting up in the bedside chair. No further episodes of shortness of breath and/or diaphoresis. No chest pain. He has been maintaining sinus mechanism on the monitor occassional PVCs. Vitals are stable. Labs: D-dimer negative, troponin negative 3, CBC unremarkable, triglycerides 114, cholesterol 116, LDL 65, HDL 28 Vitals, blood pressure 156/82, heart rate 69, afebrile, saturation 94% on room air GENERAL: Well-appearing, well-nourished and in no acute distress. NECK: Supple without JVD . LUNGS: Breath sounds clear to auscultation bilaterally. Respiration equal and unlabored. No wheezes, rales or rhonchi. HEART: Regular rate and rhythm without murmurs, rubs or gallops. S1 and S2 heard. EXTREMITIES: Normal range of motion, no edema. No clubbing or cyanosis. Peripheral pulses intact. ASSESSMENT Symptoms of feeling hot, diaphoresis and difficulty breathing, resolved PLAN Obtain 2D echocardiogram and doppler study If no significant findings on echocardiogram, ok to discharge today and patient can follow up outpatient. Stress test can be discussed on an outpatient basis. Nurse Practitioner note has been reviewed, I agree with a documented findings and plan of care. Patient was seen and examined. Objective - Vital Signs Vital signs: Vital Signs Temp 97.9 F 02/02/22 07:00 Pulse 69 02/02/22 07:00 Resp 18 02/02/22 07:00 BP 156/82 02/02/22 07:00 Pulse Ox 94 L 02/02/22 07:00 FiO2 Intake & Output 02/01/22 02/02/22 02/02/22 18:59 06:59 18:59 Intake Total 118 Output Total 0 Balance 0 118 Weight 163.293 kg Intake: Oral 118 Output: Urine 0 Other: Voiding Method Toilet # Voids 2 - Labs CBC & Chem 7: 02/02/22 03:38 02/01/22 12:04 Labs: Abnormal Lab Results - Last 24 Hours (Table) 02/01/22 02/02/22 02/02/22 Range/Units 12:04 03:38 03:38 MCHC 31.9 L (32.0-37.0) g/dL Plt Count 130 L (150-450) k/uL HDL Cholesterol 28.20 L (40.00-60.00) mg/dL
[2022-02-02] MEDS ORDERED: VALSARTAN 80 MG TAB PO SCH (11:00)
--- NOTE | 2022-02-02 11:03 | CT ---
EXAMINATION TYPE: CT brain wo con CT DLP: 1098.80 mGycm, Automated exposure control for dose reduction was used. DATE OF EXAM: 02/02/2022 10:47 AM COMPARISON: None. CLINICAL INDICATION:Male, 61 years old with history of lightheadedness, Lightheadedness, diaphoresis, dizziness and shortness of breath TECHNIQUE: Brain: Multiple axial CT images of the brain were obtained without IV contrast. FINDINGS: Brain: Extra-axial spaces: No abnormal extra-axial fluid collections. Ventricular system: Within normal limits Cerebral parenchyma: No acute intraparenchymal hemorrhage or mass effect. The mcdonald-white junction is well differentiated. Cerebellum: Unremarkable. Mass effect: No evidence of midline shift. Intracranial vasculature: unremarkable Soft tissues: Normal. Calvarium/osseous structures: No depressed skull fracture. Paranasal sinuses and mastoid air cells: Mild scattered paranasal sinus disease. Visualized orbits: Orbital contents are intact. IMPRESSION: No acute intracranial process.
[2022-02-02] MEDS ORDERED: PANTOPRAZOLE 40 MG/10 ML VIAL IVP SCH (11:30)
--- NOTE | 2022-02-02 11:39 | P.HPIM ---
History of Present Illness H&P Date: 02/02/22 Chief Complaint: Lightheadedness, diaphoretic, shortness of breath History and Physical and Discharge Summary This is a 61-year-old gentleman with past medical history of extensive reconstruction of head and neck secondary to basal cell carcinoma 2005, osteoarthritis, MRSA, former nicotine dependence of less than 1 pack per day 20 years, quit in 2005, morbid obesity and multiple other medical issues presented to the ER with complaints of lightheadedness/dizziness, shortness of breath and diaphoresis while sitting in taoism. Reports taoism was air-conditioned. Denies chest pain, palpitations. Denies muscle weakness, numbness or tingling . Denies loss of vision, near syncope or syncope, denies nausea vomiting or diarrhea. Denies abdominal pain. Reports lasted about 20 seconds proceeded to his truck, went home and took 5 baby aspirins. Reports this is his first occurrence. Symptoms minimally persisted while driving to the ER. On admission, afebrile, normal WBC, maintaining O2 sats in the mid 90s on room air, respiratory rate 18 and 19, heart rate 66, hypertensive with blood pressure 184/100. Hematology, coagulation and chemistry panels unremarkable; D-dimer 0.41, thoracic/aorta/pelvis CTA reported negative CT angiogram of the chest abdomen and pelvis with no evidence of pulmonary embolism; incidental mentioning of subcutaneous edema or the posterior lumbar spine. Troponins negative 3, EKG reported sinus rhythm with sinus arrhythmia. Electrolytes WNL. Triglycerides 114, cholesterol 116, LDL 65, HDL low at 28.2.Hemoglobin A1c 5.7. Evaluated by cardiology, 2-D echo ordered. Review of Systems ROS Statement: Those systems with pertinent positive or pertinent negative responses have been documented in the HPI. ROS Other: All systems not noted in ROS Statement are negative. Past Medical History Past Medical History: Cancer, Osteoarthritis (OA) Additional Past Medical History / Comment(s): skin cancer History of Any Multi-Drug Resistant Organisms: MRSA Date of last positivie culture/infection: 2005 MDRO Source:: BILAT LEGS Past Surgical History: Orthopedic Surgery Additional Past Surgical History / Comment(s): 08/21 FACIAL RECONSTRUCTION R/T basal cell CANCER, right rotator cuff repair, left knee arthroscopy, bilat antonino bunion removal Past Anesthesia/Blood Transfusion Reactions: No Reported Reaction Past Psychological History: No Psychological Hx Reported Smoking Status: Former smoker - Past Family History Mother Family Medical History: No Reported History Father Family Medical History: Cancer Medications and Allergies Home Medications Medication Instructions Recorded Confirmed Type Albuterol Inhaler [Ventolin Hfa 2 puff INHALATION RT-QID PRN #1 inh 02/02/22 Rx Inhaler] Budesonide/Formoterol Fumarate 2 puff INHALATION BID #1 inh 02/02/22 Rx [Symbicort 80-4.5 Mcg Inhaler] Allergies Allergy/AdvReac Type Severity Reaction Status Date / Time morphine AdvReac Nausea & Verified 02/01/22 13:46 Vomiting Physical Exam Vitals: Vital Signs Temp Pulse Pulse Pulse Resp BP BP 02/02/22 07:00 97.9 F 69 18 156/82 02/02/22 01:59 97.8 F 72 17 140/71 02/01/22 19:42 98.6 F 74 18 149/77 02/01/22 19:27 68 20 02/01/22 15:00 98.4 F 68 20 156/78 02/01/22 14:08 97.8 F 71 18 107/77 02/01/22 13:28 67 18 135/78 02/01/22 12:12 18 02/01/22 11:17 98.1 F 66 19 184/100 Pulse Ox 02/02/22 07:00 94 L 02/02/22 01:59 92 L 02/01/22 19:42 95 02/01/22 19:27 02/01/22 15:00 96 02/01/22 14:08 98 02/01/22 13:28 100 02/01/22 12:12 02/01/22 11:17 95 Intake and Output 02/01/22 02/02/22 02/02/22 22:59 06:59 14:59 Intake Total 118 Balance 118 Intake: Oral 118 Other: Voiding Method Toilet Toilet # Voids 1 2 PHYSICAL EXAM: VITAL SIGNS: As above GENERAL: Pleasant gentleman sitting up in chair, no acute distress HEENT: Conjunctivae normal. eyes normal. NECK: No JVD. No thyroid enlargement. No LNs CARDIOVASCULAR: S1, S2 regular.No murmur RESPIRATION: Unlabored, Breath sounds clear to auscultation, diminished in the bases. No rhonchi or crackles. No bronchial breathing. ABDOMEN: Soft, nontender . No guarding. no masses palpable. No ascites, No hepatosplenomegaly.Bowel sounds heard. LEGS: No significant edema, swelling appreciated. No clubbing, no cyanosis. Positive DP pulses. PSYCHIATRY: Alert and oriented X3, mood and affect normal. NERVOUS SYSTEM: Cranial N 2-12 grossly normal. Moves all 4 limbs. No focal deficits. Strength and sensation grossly intact. Skin: Warm and dry, no rash Results CBC & Chem 7: 02/02/22 03:38 02/01/22 12:04 Labs: Abnormal Lab Results - Last 24 Hours (Table) 02/01/22 02/02/22 02/02/22 Range/Units 12:04 03:38 03:38 MCHC 31.9 L (32.0-37.0) g/dL Plt Count 130 L (150-450) k/uL HDL Cholesterol 28.20 L (40.00-60.00) mg/dL Thrombosis Risk Factor Assmnt - Choose All That Apply Each Factor Represents 1 point: Obesity (BMI >25) Each Risk Factor Represents 2 Points: Age 61-74 years Other congenital or acquired thrombophilia - If yes, enter type in comment: No Thrombosis Risk Factor Assessment Total Risk Factor Score: 3 Thrombosis Risk Factor Assessment Level: Moderate Risk Assessment and Plan Assessment: Dyspnea, diaphoresis without near-syncope or syncope, workup in progress Hypertension, present on admission, systolic blood pressure currently running 140s to 150s Former nicotine dependence, less than 1 pack per day 20 years, quit in 2005 COPD, stable, currently not on maintenance medications Morbid Obesity, BMI 45 Extensive reconstruction and had, neck secondary to basal cell carcinoma 2005 Plan: Continue on current medication regime ,monitoring and symptomatic treatment.LABA with albuterol rescue inhaler initiated. Recommend PFT outpatient. Brain CT ordered secondary to prior history of extensive head and neck CA. Evaluated by cardiology, echo ordered, pending. Patient ambulating, tolerating exertion well. Denies chest pain, palpitations or shortness of breath. Denies exertional shortness of breath. Denies lightheadedness, dizziness or focal deficits. Patient will be discharged home today in a stable condition with guarded prognosis pending echo, final DC recommendations and clearance per cardiology. Discharge Medication List Albuterol Inhaler [Ventolin Hfa Inhaler] 2 puff INHALATION RT-QID PRN #1 inh 02/02/22 [Rx] Budesonide/Formoterol Fumarate [Symbicort 80-4.5 Mcg Inhaler] 2 puff INHALATION BID #1 inh 02/02/22 [Rx] The impression and plan of care has been dictated as directed. : I performed a history and examination of this patient, discussed the same with the dictator. I agree with the dictator's note ,documented as a scribe. Any additional findings or plans will be noted.
[2022-02-02 14:54] VITALS: BP 172/85; PULSE 76; TEMP 97.5
[2022-02-03] MEDS ORDERED: PANTOPRAZOLE 40 MG TABLET PO SCH (07:30)
--- NOTE | 2022-02-03 07:49 | CA ---
Transthoracic Echo Report Name: Rob Swan Age: 61 Gender: M : 1960 Exam Date: 02/02/2022 12:50 Exam Location: [facility] Ht (in): 75 Wt (lb): 360 Ordering Physician: Torsten Finley MD Attending/Referring Phys: Sales Team Member Luba Rodriguez RDCS Procedure CPT: Indications: dyspnea Cardiac Hx: Technical Quality: Fair Contrast 1: Total Dose (mL): Contrast 2: Total Dose (mL): MEASUREMENTS (Male / Female) Normal Values 2D ECHO LV Diastolic Diameter PLAX 5.2 cm 4.2 - 5.9 / 3.9 - 5.3 cm LV Systolic Diameter PLAX 3.1 cm IVS Diastolic Thickness 1.7 cm 0.6 - 1.0 / 0.6 - 0.9 cm LVPW Diastolic Thickness 1.5 cm 0.6 - 1.0 / 0.6 - 0.9 cm LV Relative Wall Thickness 0.6 RV Internal Dim ED PLAX 3.7 cm LA Volume 81.6 cm??? 18 - 58 / 22 - 52 cm??? M-MODE Aortic Root Diameter MM 3.0 cm LA Systolic Diameter MM 4.8 cm LA Ao Ratio MM 1.6 AV Cusp Separation MM 2.3 cm DOPPLER AV Peak Velocity 247.4 cm/s AV Peak Gradient 24.5 mmHg AV Mean Velocity 157.7 cm/s AV Mean Gradient 12.0 mmHg AV Velocity Time Integral 46.2 cm LVOT Peak Velocity 184.3 cm/s LVOT Peak Gradient 13.6 mmHg LVOT Velocity Time Integral 34.8 cm MV Area PHT 2.8 cm??? Mitral E Point Velocity 106.7 cm/s Mitral A Point Velocity 91.0 cm/s Mitral E to A Ratio 1.2 MV Deceleration Time 268.5 ms MV E' Velocity 9.9 cm/s Mitral E to MV E' Ratio 10.8 TR Peak Velocity 246.3 cm/s TR Peak Gradient 24.3 mmHg Right Ventricular Systolic Press 28.3 mmHg FINDINGS Left Ventricle Mildy increased left ventricular wall thickness. Normal left ventricular systolic function with no obvious regional wall motion abnormalities. Normal left ventricular diastolic filling pattern. Left ventricular ejection fraction is estimated at 55-60 %. Right Ventricle Right ventricle at upper limits of normal. Right ventricular systolic pressure within normal limits. Right Atrium Normal right atrial size. Left Atrium Mild left atrial dilatation. No evidence for an atrial septal defect. Mitral Valve Structurally normal mitral valve. Mild mitral regurgitation. Aortic Valve Mild aortic stenosis with a peak gradient of 25 mmHg and a mean gradient of 12 mmHg. No aortic regurgitation. Tricuspid Valve Structurally normal tricuspid valve. Mild tricuspid regurgitation. Pulmonic Valve Trace pulmonic regurgitation. Pericardium No pericardial effusion. Aorta Normal size aortic root and proximal ascending aorta. CONCLUSIONS Normal left ventricular ejection fraction 55-60% Mild LVH Mild mitral regurgitation Mild aortic stenosis Mild tricuspid regurgitation No pericardial effusion Previewed by: Dr. Antoni Walker DO (Electronically Signed) Final Date: 03 February 2022 07:48
== END 2022-02-02 15:02 | disposition home or self-care (01) ==
LOC: EC 11:10 → 6NMEDSUR 13:23
PROVIDERS: ADMIT Family Medicine; ATTEND Family Medicine
DX: J44.9 Chronic obstructive pulmonary disease, unspecified (principal); I10 Essential (primary) hypertension; R61 Generalized hyperhidrosis; R42 Dizziness and giddiness; I45.10 Unspecified right bundle-branch block; M19.90 Unspecified osteoarthritis, unspecified site; E66.01 Morbid (severe) obesity due to excess calories; Z68.42 Body mass index [BMI] 45.0-49.9, adult; Z20.822 Contact with and (suspected) exposure to COVID-19; Z79.82 Long term (current) use of aspirin; Z88.5 Allergy status to narcotic agent; Z85.828 Personal history of other malignant neoplasm of skin; Z86.14 Personal history of Methicillin resistant Staphylococcus aureus infection; Z87.891 Personal history of nicotine dependence; Z98.890 Other specified postprocedural states; Z80.9 Family history of malignant neoplasm, unspecified
CPT/HCPCS: 96374; 99285; 36415; 94640; 93005; 93306; 85379; 83880; 80061 ×2; 80053; 83605; 83735; 84484; 85025 ×2; 85610; 85730; 83036; 87635; 71046; 70450; 71275; 74174; G0378 ×2; C9113; Q9967

== ENCOUNTER → 2023-03-11 | Outpatient (CLI) | payer MEDICAID ==
[2023-03-11 15:30] LABS: ALT 49 U/L (10-49); AST 34 U/L (14-35); Albumin 4.6 d/dL (3.8-4.9); Albumin/Globulin Ratio 2.56 Ratio (1.60-3.17); Alkaline Phosphatase 52 U/L (41-126); Calcium 8.7 mg/dL (8.7-10.3); Chloride 106 mmol/L (96-109); Globulin 1.8 d/dL (1.6-3.3); Glucose 103 mg/dL (70-110); Potassium 4.6 mmol/L (3.5-5.5); Sodium 142 mmol/L (135-145); Total Bilirubin 0.6 mg/dL (0.3-1.2); Total Protein 6.4 d/dL (6.2-8.2)
== END | disposition home or self-care (01) ==
LOC: LABWHC1 10:25
PROVIDERS: ATTEND Family Medicine
DX: I10 Essential (primary) hypertension (principal)
CPT/HCPCS: 36415; 80053

== ENCOUNTER → 2023-07-28 | Outpatient (CLI) | payer MEDICAID ==
--- NOTE | 2023-09-03 17:16 | P.CEMON ---
30 Day Event monitor note: Patient wore an event monitor for 30 days from 07/28/2023 through 08/26/2023. Findings: Patient's baseline heart rate was normal sinus rhythm. There were no signficant atrial fibrillation, atrial flutter, or ventricular tachycardia episodes. There were no significant pauses greater than 2 seconds. There were a total of 64 patient activated and automatically captured events. Majority of automatically captured events corresponded with PVCs and PACs. Patient's symptoms, not specified corresponding predominantly with sinus rhythm and rarely with PVCs 2 brief runs of paroxysmal atrial tachycardia for 8 beats, asymptomatic Conclusions: 30 day event monitor showing rare PACs and PVCs as well as 2 brief runs of paroxysmal atrial tachycardia for 8 beats which were asymptomatic. Patient activated events corresponding with sinus rhythm and rarely with PVCs.
--- NOTE | 2023-09-06 09:52 | EM ---
30 Day Event monitor note: Patient wore an event monitor for 30 days from 07/28/2023 through 08/26/2023. Findings: Patient's baseline heart rate was normal sinus rhythm. There were no significant atrial fibrillation, atrial flutter, or ventricular tachycardia episodes. There were no significant pauses greater than 2 seconds. There were a total of 64 patient activated and automatically captured events. Majority of automatically captured events corresponded with PVCs and PACs. Patient's symptoms, not specified corresponding predominantly with sinus rhythm and rarely with PVCs 2 brief runs of paroxysmal atrial tachycardia for 8 beats, asymptomatic Conclusions: 30 day event monitor showing rare PACs and PVCs as well as 2 brief runs of paroxysmal atrial tachycardia for 8 beats which were asymptomatic. Patient activated events corresponding with sinus rhythm and rarely with PVCs. [facility]
== END | disposition home or self-care (01) ==
LOC: RADECHMAIN 07:51
PROVIDERS: ATTEND Internal Medicine Clinical Cardiac Electrophysiology
DX: I47.19 Other supraventricular tachycardia (principal); I49.3 Ventricular premature depolarization; I49.1 Atrial premature depolarization; R00.2 Palpitations
CPT/HCPCS: 93270

== ENCOUNTER → 2024-01-17 | Outpatient (CLI) | payer MEDICAID ==
[2024-01-17 10:24] LABS: HCT 42.9 % (39.6-50.0); HGB 13.5 g/dL (13.0-17.0); MCH 29.2 pg (27.0-32.0); MCHC 31.5 g/dL (32.0-37.0); MCV 92.7 FL (80.0-97.0); Mean Platelet Volume 11.5 FL (9.5-12.2); NRBC Per 100 WBC 0 X 10*3/uL (0.00-0.01); Platelet Count 161 X 10*3/uL (140-440); RBC 4.63 X 10*6/uL (4.40-5.60); RDW 13.8 % (11.5-14.5); WBC 9.04 X 10*3/uL (4.50-10.00)
[2024-01-17 10:43] LABS: ALT 37 U/L (10-49); AST 28 U/L (14-35); Albumin 4.4 g/dL (3.8-4.9); Albumin/Globulin Ratio 2.59 Ratio (1.60-3.17); Alkaline Phosphatase 55 U/L (41-126); BUN/Creat Ratio 17.67 Ratio (12.00-20.00); Blood Urea Nitrogen 15.9 mg/dL (9.0-27.0); Calcium 8.8 mg/dL (8.7-10.3); Carbon Dioxide 24.6 mmol/L (21.6-31.8); Chloride 103 mmol/L (96-109); Chol/HDL Ratio 3.08 Ratio; Globulin 1.7 g/dL (1.6-3.3); Glucose 114 mg/dL (70-110); LDL Cholesterol,Calculated 41.9 mg/dL (0.0-131.0); Magnesium 2.3 mg/dL (1.5-2.4); Potassium 4.2 mmol/L (3.5-5.5); Sodium 139 mmol/L (135-145); Total Bilirubin 0.6 mg/dL (0.3-1.2); Total Protein 6.1 g/dL (6.2-8.2)
[2024-01-17 11:49] LABS: Basophils # (A) 0.06 X 10*3/uL (0.00-0.10); Basophils % (A) 0.7 %; Eosinophils # (A) 0.24 X 10*3/uL (0.04-0.35); Eosinophils % (A) 2.7 %; Lymphocytes # (A) 4.11 X 10*3/uL (0.90-5.00); Lymphocytes % (A) 45.5 %; Monocytes # (A) 0.97 X 10*3/uL (0.20-1.00); Monocytes % (A) 10.7 %; Neutrophils # (A) 3.64 X 10*3/uL (1.80-7.70); Neutrophils % (A) 40.2 %; RBC Morphology Normal (Normal)
== END | disposition home or self-care (01) ==
LOC: LABWHC1 07:12
PROVIDERS: ATTEND Nurse Practitioner Adult Health
DX: I10 Essential (primary) hypertension (principal); I25.10 Atherosclerotic heart disease of native coronary artery without angina pectoris; E78.5 Hyperlipidemia, unspecified
CPT/HCPCS: 36415; 80053; 80061; 83036; 83735; 84443; 85025

== ENCOUNTER → 2024-04-06 | Outpatient (CLI) | payer MEDICAID ==
[2024-04-06 13:17] VITALS: BP 145/89; PULSE 68; RESP 18; TEMP 94
--- NOTE | 2024-04-06 14:07 | P.SLEEP ---
History of Present Illness DATE: 04/06/2024 CONSULTATION/NEW PATIENT EVALUATION HISTORY OF PRESENT ILLNESS/SLEEP-WAKE EVALUATION: 63-year-old gentleman had b een evaluated in the sleep center for possible obstructive sleep apnea hypopnea syndrome. SLEEP SCHEDULE: Usually sleep schedule from 9:30 PM to 6:30 a.m. FALLING ASLEEP: Usually no significant problems with falling asleep. DURING SLEEP: Patient has loud snoring and multiple awakenings from sleep up to 5 times with 4 episodes of nocturia. Positive history of restless leg symptoms and sweating no history of hypnogogical hallucinations, sleep paralysis, or cataplexy. DURING THE DAY/WAKE STATE: In the morning patient wake up tired, falling asleep during the day, has problems with memory. [place] Sleepiness Scale increased to 11. Patient takes nap around 1 PM. PAST MEDICAL HISTORY: Hypertension, hyperlipidemia, CHF, basal cell carcinomas. PAST SURGICAL HISTORY: Right shoulder surgery. MEDICATIONS: Please see below. SOCIAL HISTORY: Please see below. FAMILY HISTORY: Sleep apnea. REVIEW OF SYSTEMS: Loud snoring, multiple awakenings from sleep, sleepiness during the day. No fevers. No double vision. No recent chest pain. No shortness of breath. No abdominal pain. No bleeding episodes. No blood in urine. No seizure episodes. PHYSICAL EXAMINATION: GENERAL: A pleasant patient without any distress. VITAL SIGNS: Please see below, weight 402 pounds, BMI 50.7. HEENT: PERRLA, EOMI. Evaluation of oropharynx showed tongue protrudes midline, low position of soft palate Mallampati 4. NECK: Supple. No JVD. Thyroid is not palpable. 20 inches in circumference. LUNGS: Clear to percussion and to auscultation. Good air exchange. No wheezing or rhonchi. HEART: S1, S2 regular. No murmurs, gallops or rubs. ABDOMEN: Soft and nontender. Bowel sounds are present. No organomegaly appreciated. EXTREMITIES: 1-2+ lower leg swelling. REGISTERED VASCULAR TECHNOLOGIST (RVT): Awake, alert, and oriented x3. Cranial nerves 2 to 7 intact. There is no fasciculation or atrophy noted. No focal deficits observed. ASSESSMENT: 1. Loud snoring, multiple awakenings from sleep, extremely low position of soft palate Mallampati 4, wide neck 20 inches in circumference, sleepiness with [place] Sleepiness Scale increased to 11. Obstructive sleep apnea hypopnea syndrome. 2. Obesity, BMI 50.7. 3. Hypertension. 4. Hyperlipidemia. 5 CHF. 6 . History of multiple basal cell carcinomas removed from the skin. 7. Status post right shoulder surgery. PLAN: 1. Polysomnography for evaluation of patient's breathing during sleep. 2. CPAP/BiPAP titration if sleep study confirms obstructive sleep apnea- hypopnea syndrome. 3. Preferable position during sleep on the side. 4. No driving if patient feels any sleepiness. Patient is aware of civil and criminal liability for unsafe driving. 5. sleep hygiene with regular sleep time for at least 7.5-8 hours. 6. Watching and losing weight. Thank you very much for referring this patient for consultation. Sincerely, Aidan Barriga MD, PhD, FAASM. Diplomat of [place] [employer], Sleep Medicine Board by [place] [employer] [place] [employer] Accounting Machine Mechanic of [facility] [place] cc: Collin Medeiros Ajay MD Past Medical History Past Medical History: Cancer, Osteoarthritis (OA) Additional Past Medical History / Comment(s): skin cancer History of Any Multi-Drug Resistant Organisms: MRSA Date of last positivie culture/infection: 2005 MDRO Source:: BILAT LEGS Past Surgical History: Orthopedic Surgery Additional Past Surgical History / Comment(s): 2005 2/ FACIAL RECONSTRUCTION R/T basal cell CANCER, right rotator cuff repair, left knee arthroscopy, bilat antonino bunion removal Past Anesthesia/Blood Transfusion Reactions: No Reported Reaction Past Psychological History: No Psychological Hx Reported Smoking Status: Former smoker Past Alcohol Use History: Occasional Additional Past Alcohol Use History / Comment(s): quit smoking 2004 Past Drug Use History: None Reported - Past Family History Mother Family Medical History: Cancer Father Family Medical History: Cancer, Hypertension, Sleep Apnea/CPAP/BIPAP Additional Family Medical History / Comment(s): snoring Medications and Allergies Home Medications Medication Instructions Recorded Confirmed Type Albuterol Inhaler [Ventolin Hfa 2 puff INHALATION RT-QID PRN #1 inh 02/02/22 Rx Inhaler] Budesonide/Formoterol Fumarate 2 puff INHALATION BID #1 inh 02/02/22 Rx [Symbicort 80-4.5 Mcg Inhaler] Valsartan [Diovan] 80 mg PO DAILY #30 tab 02/02/22 04/06/24 Rx Bisoprolol-Hctz 2.5-6.25 mg [Ziac See Rx Instructions .ROUTE .COMPLEX 04/06/24 04/06/24 History 2.5-6.25 MG] Furosemide [Lasix] 40 mg PO DAILY 04/06/24 04/06/24 History Magnesium Oxide [Magnesium] 1,000 mg PO DAILY 04/06/24 04/06/24 History Rosuvastatin [Crestor] 10 mg PO DAILY 04/06/24 04/06/24 History Allergies Allergy/AdvReac Type Severity Reaction Status Date / Time morphine AdvReac Nausea & Verified 02/01/22 13:46 Vomiting Physical Exam Vitals: Vital Signs Temp Pulse Resp BP Pulse Ox 04/06/24 13:15 94 F L 68 18 145/89 94 L Intake and Output 04/05/24 04/06/24 04/06/24 22:59 06:59 14:59 Other: Weight 182.344 kg Sleep Note - Sleep Data ESS Total: 11 - Sleep Note Sleep Note: Temperature: 94 F Pulse Rate: 68 Respiratory Rate: 18 Blood Pressure: 145/89 SpO2: 94 Height: 6 ft 2.5 in Weight: 182.344 kg BMI: Neck Circumference: 20
== END ==
LOC: 3 N SLEEP 13:00
PROVIDERS: ATTEND Internal Medicine
CPT/HCPCS: 99211

== ENCOUNTER → 2024-04-20 | Outpatient (CLI) | payer MEDICAID ==
[~2024-04-20] MED LIST changes: -.fentaNYL (PF) 50 MCG/ML AMP IV PRN; +DOBUTamine DRIP for NUC MED 500 MG in DEXTROSE/WATER 1 250ML.BAG IV PRN; -LACTATED RINGERS 1,000 ML IV SCH; -LIDOCAINE 1% (10MG/ML) FOR IV START INTRADERMA PRN; -ONDANSETRON 4 MG/2 ML VIAL IVP ONE; -ceFAZolin 3 GM in SODIUM CHLORIDE 0.9% 100 ML IVPB PRN
--- NOTE | 2024-04-20 10:25 | CA ---
Transthoracic Echo Report Name: Rob Swan Age: 63 Gender: M : 1960 Exam Date: 04/20/2024 09:12 Exam Location: [facility] Ht (in): 75 Wt (lb): 385 Ordering Physician: Joon Castellano MD ([id number]) Attending/Referring Phys: Professional Sports Scout Bridgette Randhawa RDCS Procedure CPT: Indications: I25.10 ATHSCL HEART DISEASE OF [place] CORONARY Cardiac Hx: Technical Quality: Good Contrast 1: Total Dose (mL): Contrast 2: Total Dose (mL): MEASUREMENTS (Male / Female) Normal Values 2D ECHO LV Diastolic Diameter PLAX 5.5 cm 4.2 - 5.9 / 3.9 - 5.3 cm LV Systolic Diameter PLAX 3.7 cm IVS Diastolic Thickness 1.7 cm 0.6 - 1.0 / 0.6 - 0.9 cm LVPW Diastolic Thickness 1.9 cm 0.6 - 1.0 / 0.6 - 0.9 cm LV Relative Wall Thickness 0.6 RV Internal Dim ED PLAX 3.2 cm LA Systolic Diameter LX 4.8 cm 3.0 - 4.0 / 2.7 - 3.8 cm LV Diastolic Volume MOD BP 101.0 cm??? 67 - 155 / 56 - 104 cm??? LV Systolic Volume MOD BP 38.2 cm??? 22 - 58 / 19 - 49 cm??? LV Ejection Fraction MOD BP 62.2 % >= 55 % LV Cardiac Index MOD BP 1328.2 cm???/min???m??? LV Diastolic Volume MOD 4C 87.1 cm??? LV Systolic Volume MOD 4C 33.0 cm??? LV Ejection Fraction MOD 4C 62.1 % LV Cardiac Index MOD 4C 1142.9 cm???/min???m??? LV Diastolic Length 4C 8.9 cm LV Systolic Length 4C 7.2 cm LV Diastolic Volume MOD 2C 116.5 cm??? LV Systolic Volume MOD 2C 44.0 cm??? LV Ejection Fraction MOD 2C 62.3 % LV Cardiac Index MOD 2C 1533.2 cm???/min???m??? LV Diastolic Length 2C 8.8 cm LV Systolic Length 2C 7.4 cm LA Volume 123.7 cm??? 18 - 58 / 22 - 52 cm??? LA Volume Index 39.6 cm???/m??? 16 - 28 cm???/m??? M-MODE Aortic Root Diameter MM 3.8 cm LA Systolic Diameter MM 4.5 cm LA Ao Ratio MM 1.2 AV Cusp Separation MM 2.0 cm DOPPLER MV Area PHT 2.3 cm??? Mitral E Point Velocity 97.3 cm/s Mitral A Point Velocity 96.8 cm/s Mitral E to A Ratio 1.0 MV Deceleration Time 329.3 ms TR Peak Velocity 262.6 cm/s TR Peak Gradient 27.6 mmHg Right Atrial Pressure 10.0 mmHg Pulmonary Artery Systolic Pressu 37.6 mmHg Right Ventricular Systolic Press 37.6 mmHg FINDINGS Left Ventricle Left ventricular ejection fraction is estimated at 55-60 %. Moderately increased left ventricular wall thickness. Normal Left ventricular size, systolic function with no obvious regional wall motion abnormalities. Right Ventricle Normal right ventricular size and function. Mild pulmonary hypertension. Right Atrium Mild right atrial dilatation. Left Atrium Moderately increased left atrial diameter. Moderately increased left atrial volume. Mildly increased left atrial area. Mitral Valve Structurally normal mitral valve. No mitral stenosis. Mild mitral regurgitation. Aortic Valve Trileaflet aortic valve. No aortic valve stenosis or regurgitation. Tricuspid Valve Structurally normal tricuspid valve. Mild tricuspid regurgitation. Pulmonic Valve Structurally normal pulmonic valve. Trace pulmonic regurgitation. No pulmonic stenosis. Pericardium No pericardial or pleural effusion. Aorta Mild aortic dilatation at the level of the sinuses of valsalva (root). CONCLUSIONS Normal LV function Dilated left atrium Mild mitral regurgitation Previewed by: Dr. Selwyn Leal MD (Electronically Signed) Final Date: 20 April 2024 10:24
--- NOTE | 2024-04-20 17:14 | CA ---
Dobutamine Stress Echocardiogram Report Rob Swan Age: 63 Gender: M : 1960 Exam Date: 04/20/2024 10:18 Exam Location: [facility] Ordering Physician: Joon Castellano MD ([id number]) Referring Physician: CARMEL,, Boat Diesel Motor Mechanic: Bridgette Randhawa RDCS Technologist: Ht (in): 75 Wt (lb): 385 Procedure CPT: Indication: I25.10 ATHSCL HEART DISEASE OF [place] CORONARY ICD-9 Codes: Rhythm: Patient History: Shortness of breath Cardiac Medications: Medications in past 24 hours: Contrast: Total Dose (mL): Stress Results Protocol: Dobutamine Peak Dose (???g/kg/min): 40 Duration (min:sec): Atropine:(mg) 0.5 Target HR: 133 Double Product: [id number] Resting HR: 58 Resting BP: 140 / 81 Peak HR: 134 Peak BP: 203 / 55 Max Predicted HR: 157 85 % Max Predicted HR Stress Summary: BP Response: Reason for Termination: Exceeded target heart rate (85% max predicted) Cardiac Symptoms: No symptoms ECG Analysis Resting EKG: Normal sinus rhythm normal axis normal intervals Stress EKG: Patient was given intravenous dobutamine as per protocol also received 0.5 mg of atropine achieving 85% of predicted maximal heart rate at peak dobutamine infusion there was [address] segment depression. Arrhythmia: PVCs noted Echo Analysis Base Echo Analysis: Normal left ventricular size wall motion systolic function Low Echo Anaylsis: Normal Peak Echo Analysis: Normal hyperdynamic response Recovery Echo: Normal MEASUREMENTS (Male/Female) Normal Values CONCLUSIONS Negative dobutamine stress echo Dr. Selwyn Leal MD (Electronically Signed) Final Date: 20 April 2024 17:13
== END | disposition home or self-care (01) ==
LOC: RADNMMAIN 08:54
PROVIDERS: ATTEND Internal Medicine Clinical Cardiac Electrophysiology
DX: I25.10 Atherosclerotic heart disease of native coronary artery without angina pectoris (principal); I34.0 Nonrheumatic mitral (valve) insufficiency
CPT/HCPCS: 93306; 93351

== ENCOUNTER 2024-05-02 19:30 | Outpatient (CLI) | payer MEDICAID ==
--- NOTE | 2024-05-04 14:03 | P.PCN ---
Description of Procedure: POLYSOMNOGRAPHY REPORT PROCEDURE(S)/DATE(S): Polysomnography 05/02/2024 CLINICAL: Patient has been seen in the sleep center for evaluation of obstructive sleep apnea-hypopnea syndrome. Please see my consultation. Sleep study has been done for evaluation of patient breathing during the sleep. PROCEDURE: The standard montage for clinical polysomnography included the electroencephalogram, the electrooculogram, the mentalis surface electromyography and Lead II cardiography. The respiratory battery consisted of measurements of nasal/buccal air flow, pressure transducer measurements from nose, thoracic and/or abdominal effort and intercostal surface electromyography. Video monitoring has been done to check for any parasomnia events. Nocturnal oxyhemoglobin saturations were obtained by finger oximetry. Step-jaimes titration with positive airway pressure was utilized to control the respiratory events, if necessary. RESULTS: During the diagnostic sleep study sleep efficiency was slightly decreased to 86.0%. Latency to sleep onset was normal 22.0 min. Sleep architecture showed stage NI was significantly increased to 23.4%, Delta sleep was practically absent 0.1%, REM sleep was decreased to 16.1%. Respiratory channel showed 0 obstructive apneas, 6 mixed apneas, 0 central apneas, 368 hypopneas with lowest oxygen level 66%. Total apnea hypopnea index was 61.7. Heart rate was in the range between 57 and 70, average 63. EMG showed 0 periodic limb movements per hour with 0 micro-arousals per hour. IMPRESSIONS: 1. Extremely severe obstructive sleep apnea hypopnea syndrome with extremely severe oxygen desaturation. 2. No significant periodic limb movements have been documented. Please see other impressions from consultation PLAN: 1. The patient will have PAP titration for correction of respiratory abnormalities during the sleep. 2. Losing weight program. 3. Sleep hygiene with regular time in bed for at least 7-1/2 hours. 4. No driving if feeling sleepiness. Thank you very much for allowing me to participate in the management of your patient. Sincerely, Aidan Barriga MD, PhD, FAASM. Diplomat of [place] [employer], Sleep Medicine Board by [place] [employer] Acid Leveler of [facility] [place] cc: Collin Nuñez DO
== END 2024-05-03 05:25 | disposition home or self-care (01) ==
LOC: 3 N SLEEP 19:30
PROVIDERS: ATTEND Internal Medicine
CPT/HCPCS: 95810

== ENCOUNTER 2024-05-15 19:33 | Outpatient (CLI) | payer MEDICAID ==
--- NOTE | 2024-05-24 10:58 | P.PCN ---
Description of Procedure: CLINICAL: Titration with positive air pressure has been done for correction of respiratory abnormalities during sleep. DESCRIPTION OF PROCEDURE: The standard montage for clinical polysomnography included the electroencephalogram, the electrocardiogram, the mentalis surface electromyography and Lead II cardiography. The respiratory battery consisted of measurements of nasal /buccal air flow, pressure transducer measurements from the nose, thoracic and /or abdominal effort and intercostal surface electromyography. Video monitoring has been done to check for any parasomnia events. Nocturnal oxyhemoglobin saturations were obtained by finger oximetry. Step-jaimes titration with positive airway pressure was utilized to control respiratory events. Raw data of sleep recording has been reviewed and is adequate. RESULTS: Sleep efficiency was slightly decreased to 83.7%. Latency to sleep onset was normal 19.0 minutes.]. Sleep architecture showed stage N1 was short 1.1%, Delta sleep was absent 0%, REM sleep was significantly increased to 37.6%. Heart rate was minimum 58 BPM, maximum 65 BPM, average 62 BPM. EMG showed 0 periodic limb movements per hour with 0 micriarousals per hour. PAP titration have been done with CPAP up to the pressure 13 cm H2O. The best results were at the pressure 12 cm H2O. Apnea hypopnea index reduced to 0. IMPRESSION: 1. Severe obstructive sleep apnea hypopnea syndrome on controle with PAP treatment. 2. No significant periodic limb movements have been documented. Please see other impressions from consultation. PLAN: 1. The patient will have treatment with positive air pressure equipment with the level of pressure AutoPAP 5-14 cm H2O and should use it every night for the whole night. 2. Watching and losing weight. 3. Sleep hygiene with regular time in bed for at least 8 hours. 4. No driving if feeling any sleepiness. 5. I will see the patient for follow up visit to explain the results of the test, recommendations, check compliance with treatment and make any necessary adjustment related to mask fitting, pressure and humidification. Thank you very much for allowing me to participate in the management of your patient. Sincerely, Aidan Barriga MD, PhD, FAASM Diplomat of [place] [employer] Sleep Medicine Board of [place] [employer] Testboard Operator of [facility] [place] cc: Collin Nuñez DO
== END 2024-05-16 04:50 | disposition home or self-care (01) ==
LOC: 3 N SLEEP 19:33
PROVIDERS: ATTEND Internal Medicine
DX: G47.33 Obstructive sleep apnea (adult) (pediatric) (principal); G47.10 Hypersomnia, unspecified; E66.9 Obesity, unspecified; E78.5 Hyperlipidemia, unspecified; I11.0 Hypertensive heart disease with heart failure; I50.9 Heart failure, unspecified; Z98.890 Other specified postprocedural states; Z85.828 Personal history of other malignant neoplasm of skin; Z68.43 Body mass index [BMI] 50.0-59.9, adult; Z87.891 Personal history of nicotine dependence; Z88.5 Allergy status to narcotic agent; Z79.899 Other long term (current) drug therapy
CPT/HCPCS: 95811

== ENCOUNTER → 2024-08-03 | Outpatient (CLI) | payer MEDICAID ==
[2024-08-03 15:14] LABS: Anion Gap 9.8 mmol/L (4.00-12.00); Carbon Dioxide 24.2 mmol/L (21.6-31.8); Potassium 4.1 mmol/L (3.5-5.5); Prostate Specific Antigen 0.78 ng/mL (0.000-4.500)
[2024-08-03 15:36] LABS: Basophils # (A) 0.05 X 10*3/uL (0.00-0.10); Basophils % (A) 0.7 %; Eosinophils # (A) 0.18 X 10*3/uL (0.04-0.35); Eosinophils % (A) 2.3 %; Lymphocytes # (A) 3.14 X 10*3/uL (0.90-5.00); Lymphocytes % (A) 40.8 %; MCH 29.2 pg (27.0-32.0); MCHC 31.8 g/dL (32.0-37.0); MCV 91.7 FL (80.0-97.0); Mean Platelet Volume 12.1 FL (9.5-12.2); Monocytes # (A) 0.89 X 10*3/uL (0.20-1.00); Monocytes % (A) 11.6 %; NRBC Per 100 WBC 0 X 10*3/uL (0.00-0.01); Neutrophils # (A) 3.42 X 10*3/uL (1.80-7.70); Neutrophils % (A) 44.5 %; Platelet Count 163 X 10*3/uL (140-440); WBC 7.69 X 10*3/uL (4.50-10.00)
== END | disposition home or self-care (01) ==
LOC: LABPAT 10:06
PROVIDERS: ATTEND Family Medicine
DX: Z00.00 Encounter for general adult medical examination without abnormal findings (principal)
CPT/HCPCS: 80051; 84153; 85025; 93005

== ENCOUNTER → 2024-08-03 | Outpatient (CLI) | payer MEDICAID ==
[2024-08-03 11:51] VITALS: BP 179/81; PULSE 74; RESP 16; TEMP 98
--- NOTE | 2024-08-03 12:12 | P.PROGSL ---
Subjective DATE: 08/03/2024 FOLLOW UP VISIT. Patient with obstructive sleep apnea hypopnea syndrome return to sleep center for follow-up visit. Recently patient had sleep study which documented obstructive sleep apnea hypopnea syndrome. Patient was initiated on PAP therapy and today is first visit after treatment was started. I explained results of sleep studies to the patient in details. He has extremely severe sleep apnea Patient was able to use PAP equipment every night for the whole night. The patient does not have significant problems with the mask, PAP pressure and humidification. Mazama sleepiness scale is 3. Patient sleeps significantly better with CPAP, feels much better during the day, but still may have couple awakenings from sleep. I checked information from PAP unit. PAP unit pressure 5-14, average 13.2 cm H2O. Usage is 96% for more then 4 hours, average 6.8 hours per night. Leak is 24 l/m, which is in acceptable range. Apnea Hypopnea Index is 3.6, which is normal. MEDICATIONS: Please see below During physical exam: GENERAL: A pleasant patient without any distress. VITAL SIGNS: Please see below, weight 414 pounds, patient increased weight on 12 pounds. HEENT: PERRLA, EOMI.low position of soft palate, Mallapati 4 . NECK: Supple. No JVD. LUNGS: Clear to percussion and to auscultation. Good air exchange. No wheezing or rhonchi. HEART: S1, S2 regular. ABDOMEN: Soft and nontender. Obese EXTREMITIES: No clubbing or cyanosis. UNDERWRITING ACCOUNT REPRESENTATIVE: Awake, alert, and oriented x3. No focal deficit. Impressions: 1. Obstructive sleep apnea-hypopnea syndrome. Patient demonstrated great compliance with treatment, benefiting from treatment. 2. Obesity, BMI more than 50. 3. Hypertension. 4. History of CHF. 5. Hyperlipidemia. 6. History of multiple basal cell carcinomas removed from the skin. 7. Status post right shoulder surgery. I increased range of pressure to the level of 5-16 cm of water. Plan: 1. Continue using PAP equipment every night for the whole night. 2. To change air filter at least 1-2 times per month. 3. PAP unit should stay lower then position of the head. 4. Advised patient to remove all remaining water from humidifier canister daily and make it dry after each usage. Refill canister with fresh distilled water before each usage. 5. Sleep hygiene with regular time in bed for at least 8 hours. 6. Precautions related to driving. No driving if feel any sleepiness. 7. I will maintain prescription for PAP supplies including mask, tube, filters. 8. Follow up visit in 8 months or earlier if patient has any problems. 9. Watching and losing weight. Thank you very much for allowing me to participate in the management of your patient. Aidan Barriga MD, PhD, FAASM. Diplomat of [place] [employer], Sleep Medicine Board by [place] [employer] Dental Hygienist [facility] [place] Objective - Vital Signs Vital Signs: Vital Signs Temp 98 F 08/03/24 11:50 Pulse 74 08/03/24 11:50 Resp 16 08/03/24 11:50 BP 179/81 08/03/24 11:50 Pulse Ox 94 L 08/03/24 11:50 FiO2 Intake & Output 08/02/24 08/03/24 08/03/24 18:59 06:59 18:59 Weight 187.787 kg Home Medications: Home Medications Medication Instructions Recorded Confirmed Type Albuterol Inhaler [Ventolin Hfa 2 puff INHALATION RT-QID PRN #1 inh 02/02/22 Rx Inhaler] Budesonide/Formoterol Fumarate 2 puff INHALATION BID #1 inh 02/02/22 Rx [Symbicort 80-4.5 Mcg Inhaler] Valsartan [Diovan] 80 mg PO DAILY #30 tab 02/02/22 04/06/24 Rx Bisoprolol-Hctz 2.5-6.25 mg [Ziac See Rx Instructions .ROUTE .COMPLEX 04/06/24 04/06/24 History 2.5-6.25 MG] Furosemide [Lasix] 40 mg PO DAILY 04/06/24 04/06/24 History Magnesium Oxide [Magnesium] 1,000 mg PO DAILY 04/06/24 04/06/24 History Rosuvastatin [Crestor] 10 mg PO DAILY 04/06/24 04/06/24 History
== END ==
LOC: 3 N SLEEP 11:25
PROVIDERS: ATTEND Internal Medicine
DX: G47.33 Obstructive sleep apnea (adult) (pediatric) (principal); E66.01 Morbid (severe) obesity due to excess calories; I10 Essential (primary) hypertension; E78.5 Hyperlipidemia, unspecified; Z86.79 Personal history of other diseases of the circulatory system; Z68.43 Body mass index [BMI] 50.0-59.9, adult; Z47.1 Aftercare following joint replacement surgery; Z85.828 Personal history of other malignant neoplasm of skin; Z88.5 Allergy status to narcotic agent; Z99.89 Dependence on other enabling machines and devices
CPT/HCPCS: 99212

== ENCOUNTER → 2024-08-15 | Outpatient (CLI) | payer MEDICAID ==
--- NOTE | 2024-08-15 14:45 | CT ---
EXAMINATION TYPE: CT abdomen pelvis wo con DATE OF EXAM: 08/15/2024 COMPARISON: CTA chest, abdomen and pelvis dated 02/01/2022 CLINICAL INDICATION: Male, 63 years old with history of R31.9 HEMATURIA; PHH, hematuria TECHNIQUE: CT scan of the abdomen and pelvis is performed without oral or IV contrast. CT DLP: 2013.[address] CTDI: mGy Automated exposure control for dose reduction was used. FINDINGS: Within the limitations of a non-contrast study, the following observations are made. The lungs are clear. Gallbladder is normal and there is no gallstone, wall thickening, pericholecystic fluid or distention . There is no biliary ductal dilatation. There is no organomegaly of the liver, pancreas, spleen or adrenal glands. There are no renal calcifications or hydronephrosis. The caliber of the abdominal aorta is normal and there is no retroperitoneal adenopathy or hemorrhage . The bowel loops are normal in caliber is no evidence of obstruction. No inflammatory changes are iden tified in the mesentery and there is no free intraperitoneal air or fluid. There is no pelvic mass, free fluid, abscess or adenopathy. There is mild diverticulosis of the colon without CT evidence of diverticulitis. The osseous structures and soft tissues are unremarkable. IMPRESSION: No significant abnormality seen. [facility], , 08/15/2024 2:42 PM
== END | disposition home or self-care (01) ==
LOC: RADCTMAIN 11:50
PROVIDERS: ATTEND Family Medicine
DX: K57.30 Diverticulosis of large intestine without perforation or abscess without bleeding (principal); R31.9 Hematuria, unspecified
CPT/HCPCS: 74176

== ENCOUNTER 2024-08-17 11:07 | Day surgery (SDC) | payer MEDICAID ==
--- NOTE | 2024-08-17 00:55 | HP ---
HISTORY AND PHYSICAL DATE OF SURGERY: 08/17/2024. HISTORY OF PRESENT ILLNESS: Rob Swan is a 63-year-old gentleman seen with progressive right knee pain. We discussed options. He elected to proceed with right knee arthroscopy. Consent is obtained. PAST MEDICAL HISTORY: Hyperlipidemia and hypertension. PAST SURGICAL HISTORY: Knee arthroscopy, shoulder arthroscopy, and facial reconstructive surgery. MEDICATIONS: 1. Aspirin. 2. Bisoprolol. 3. Furosemide. 4. Rosuvastatin. 5. Losartan. ALLERGIES: Morphine. SOCIAL HISTORY: He denies current tobacco use. PHYSICAL EVALUATION OF THE RIGHT KNEE: Range of motion is 0 to 120 degrees. Mild effusion. Tenderness, medial joint line. Positive medial Barbara's. Ligaments are stable. Hip rotation is without pain. Distal neurovascular exam is intact. IMAGING DATA: Right knee radiographs reveal moderate osteoarthritis. MRI right knee revealed medial meniscal tear. IMPRESSION: 1. Internal derangement of right knee, medial meniscal tear. 2. Hypertension. 3. Hyperlipidemia. PLAN: Right knee arthroscopy with partial medial meniscectomy and debridement. MMODL / IJN: [id number] /
[~2024-08-17 11:07] MED LIST changes: -DOBUTamine DRIP for NUC MED 500 MG in DEXTROSE/WATER 1 250ML.BAG IV PRN; +LIDOCAINE 1% (10MG/ML) FOR IV START INTRADERMA PRN; +droPERidol 5 MG/2 ML VIAL IVP ONE; +fentaNYL (PF) 50 MCG/ML 2 ML AMP IV PRN
[2024-08-17] MEDS: DEXAMETHASONE SOD PHOSPHATE 4 MG/ML 1 ML VIAL IV ONE (11:54)
[2024-08-17] MEDS: ONDANSETRON 4 MG/2 ML VIAL IVP ONE (11:54)
[2024-08-17] MEDS: LACTATED RINGERS 1,000 ML IV SCH (11:54)
[2024-08-17] MEDS: IV FLUID CONTINUATION 1,000 ML IV ONE (11:57)
[2024-08-17] MEDS ORDERED: ePHEDrine 50 MG/ML 1 ML VIAL ONE (12:28)
[2024-08-17] MEDS ORDERED: MIDAZOLAM 2 MG/2 ML VIAL ONE (12:28)
[2024-08-17] MEDS ORDERED: fentaNYL (PF) 50 MCG/ML 2 ML AMP ONE (12:28)
[2024-08-17] MEDS ORDERED: PROPOFOL 10 MG/ML 20 ML VIAL IV ONE (12:28)
[2024-08-17] MEDS: BUPIVACAINE (PF) 0.25% 30 ML VIAL SQ ONE ×2 (12:31→13:03)
[2024-08-17] MEDS: ceFAZolin 3 GM in SODIUM CHLORIDE 0.9% 100 ML IVPB PRN (12:32)
--- NOTE | 2024-08-17 13:19 | P.OP ---
Date of Procedure: 08/17/24 Preoperative Diagnosis: Internal derangement right knee Postoperative Diagnosis: 1. Tear medial meniscus right knee 2. Grade IV chondromalacia femoral sulcus right knee 3. Loose body right knee 4. Reactive synovitis medial, lateral and suprapatellar compartments right knee 5. Grade II/III chondromalacia medial femoral condyle right knee Procedure(s) Performed: 1. Arthroscopic partial medial meniscectomy right knee 2. Arthroscopic microfracture femoral sulcus right knee 3. Arthroscopic removal loose body right knee measuring 10 mm x 8 mm 4. Arthroscopic partial synovectomy medial, lateral and suprapatellar compartments right knee 5. Arthroscopic chondroplasty medial femoral condyle right knee Anesthesia: GETA, local Surgeon: Jeet Lopez Tip Tester #1: Tobin Zhao Estimated Blood Loss (ml): 7 Pathology: none sent Condition: stable Disposition: PACU Indications for Procedure: 63-year-old gentleman seen with progressive right knee pain. After having treatment options discussed, he elected to proceed with arthroscopy. Operative Findings: See description of procedure Description of Procedure: Patient was taken to the operative suite. Patient underwent a general anesth etic by the department of anesthesia. Patient was given preoperative antibiotics. The right lower extremity was placed in a well-padded arthroscopic leg tiwari. The right leg was prepped and draped in the normal sterile orthopedic fashion. A lateral parapatellar and suprapatellar incision was made. Trochars were inserted. Arthroscopy was initiated. Suprapatellar pouch revealed diffuse thick reactive synovitis. The patellofemoral joint appeared to articulate congruently congruently. There was grade I/II chondromalacia of the patella and grade III/IV chondromalacia of the femoral sulcus with osteochondral flap tears present on the femoral sulcus side. The scope was guided into the medial gutter. No loose bodies or plica were identified. The scope was then guided into the medial compartment. A medial parapatellar incision was made. Trocar inserted followed by probe. There was a tear involving the posterior horn medial meniscus. There were grade II/III chondromalacia changes medial femoral condyle with some fairly large osteochondral flap tears. There was some thick reactive synovitis anteriorly. I performed a partial medial meniscectomy getting down to stable meniscal tissue. I performed a chondroplasty of the medial femoral condyle getting down to stable osteochondral tissue. I performed a partial synovectomy decompressing the thick reactive synovitis. The residual meniscus was stable. The residual osteochondral surface was stable. There was good decompression of the synovitis. Scope and probe were then guided into the intercondylar notch. I noted a fairly large loose body. I introduced a pituitary and I was able to remove it without difficulty. The loose body measured about 10 mm x 8 mm. I reintroduced the probe, cruciates were identified, probed and found to be stable. The scope and probe were then guided into lateral compartment. The lateral meniscus was probed and was found to be stable. There was mild grade I chondromalacia without tears. There was some thick reactive synovitis anteriorly. I introduced a motorized shaver and performed a partial synovectomy. The shaver was removed. There was good decompression of the synovitis. The scope was in guided back into the suprapatellar compartment. I reduced a motorized shaver into the suprapatellar compartment. I debrided some piecemeal fragments of meniscus I encountered. I performed a partial synovectomy. I performed a chondroplasty of the femoral sulcus getting down to stable osteochondral tissue. I did note an area of exposed bone along that femoral sulcus measuring about a centimeter involving the medial side. I introduced a microfracture awl and I performed a microfracture to the area of exposed bone penetrating the bone with resultant bleeding at the microfracture site. I now took 1 more look around the entire knee, no residual debris. Instruments were now removed from the joint. The joint was infiltrated with .25% Marcaine. Steri-Strips were applied to the portal sites. Sterile dressings were applied. The patient was placed into a SOY hose. No tourniquet was utilized. The patient was awakened, transferred to a bed and taken to recovery stable satisfactory condition.
[2024-08-17 13:26] VITALS: TEMP 96.8
[2024-08-17 15:14] VITALS: BP 141/76; PULSE 59; RESP 16
== END 2024-08-17 15:05 | disposition home or self-care (01) ==
LOC: OR 11:07
PROVIDERS: ATTEND Orthopaedic Surgery
DX: S83.241A Other tear of medial meniscus, current injury, right knee, initial encounter (principal); M94.261 Chondromalacia, right knee; M23.41 Loose body in knee, right knee; M65.961 Unspecified synovitis and tenosynovitis, right lower leg; E78.5 Hyperlipidemia, unspecified; I10 Essential (primary) hypertension; Z88.5 Allergy status to narcotic agent; Z79.82 Long term (current) use of aspirin
CPT/HCPCS: 29879; 29881; J1100; J0690; J2405; J0665

== ENCOUNTER → 2024-10-03 | Outpatient (CLI) | payer MEDICAID ==
--- NOTE | 2024-10-03 15:28 | CT ---
EXAMINATION TYPE: CT urogram wo/w con CT DLP: 11,346.3 mGycm, Automated exposure control for dose reduction was used. DATE OF EXAM: 10/03/2024 3:12 PM COMPARISON: CT abdomen pelvis 08/15/2024, CTA thoracoabdominal pelvis aorta 02/01/2022 CLINICAL INDICATION:Male, 63 years old with history of R31.0 GROSS HEMATURIA; PHH, Hematuria, hx of b ladder Ca TECHNIQUE: Urogram of the abdomen and pelvis was performed before and after the administration of 100 cc of IV c ontrast Isovue 300 contrast. Delayed imaging was performed. Coronal and sagittal reformats were perfo rmed. One or more CT dose reduction strategies were utilized during this examination. 2D and 3D recon structions are performed to assist visualization of the urinary tract on a separate workstation. FINDINGS: GENITOURINARY: RIGHT KIDNEY AND URETER: No calculi. No hydronephrosis or hydroureter. No renal mass or other lesions . No urothelial lesions: no filling defect, dilation, stricture or wall thickening. LEFT KIDNEY AND URETER: No calculi. No hydronephrosis or hydroureter. No renal mass or other lesions. No urothelial lesions: no filling defect, dilation, stricture or wall thickening. URINARY BLADDER: Mildly distended. Single focus of nondependent gas likely from recent instrumentatio n. There is a lobulated polypoid lesion emanating from the posterior right urinary bladder wall at th e UVJ measuring 2.3 x 1.5 x 2.4 cm (series 14, image 89 and series 29 image 108). REPRODUCTIVE: Unremarkable. ABDOMEN LIVER: Diffusely hypoattenuating, consistent with hepatic steatosis. Mildly enlarged measuring 21.2 c m in CC dimension. No focal lesion. GALLBLADDER AND BILE DUCTS: Unremarkable PANCREAS: Unremarkable. SPLEEN: Enlarged measuring 18.7 cm in CC dimension. ADRENAL GLANDS: Unremarkable. STOMACH AND BOWEL: No focal bowel wall thickening or surrounding inflammatory changes. The appendix i s within normal limits. No evidence of bowel obstruction. PERITONEUM: No evidence of pneumoperitoneum, free fluid, or adenopathy. VASCULATURE: No aortic aneurysm. MUSCULOSKELETAL: No acute osseous abnormalities. Degenerative changes of the pubic symphysis and bila teral SI joints. No aggressive osseous lesion. LYMPH NODES: No pathologically enlarged lymph nodes greater than 1 cm short axis. Stable mildly promi nent bilateral external iliac chain lymph nodes dating back to 2021. SOFT TISSUE/ABDOMINAL WALL: Patulous fat filled right inguinal ring. LOWER CHEST: Mild cardiomegaly. Small aortic valvular calcifications. Mild bilateral lower lobe depen dent subsegmental atelectasis. IMPRESSION: 1. Right posterior urinary bladder 2.4 cm mass most consistent with urinary bladder malignancy. No CT evidence for metastasis. 2. No evidence of urolithiasis or renal/ureter neoplasm. 3. Hepatosplenomegaly. 4. Hepatic CT stenosis. [facility], , 10/03/2024 3:25 PM
== END | disposition home or self-care (01) ==
LOC: RADCTMAIN 13:57
PROVIDERS: ATTEND Urology
DX: R16.2 Hepatomegaly with splenomegaly, not elsewhere classified (principal); N32.89 Other specified disorders of bladder; K76.89 Other specified diseases of liver; R31.0 Gross hematuria
CPT/HCPCS: 74178; 74400; Q9967

== ENCOUNTER → 2024-10-17 | Outpatient (CLI) | payer MEDICAID ==
[2024-10-17 10:38] LABS: Appearance,Urine Cloudy (Clear); Bilirubin,Urine Negative (Negative); Blood,Urine Large (Negative); Color,Urine Light Red; Glucose,Urine (UA) Negative (Negative); Ketones,Urine Negative (Negative); Leukocyte Esterase,Urine Trace (Negative); Mucus,Urine Few /hpf; Nitrite,Urine Negative (Negative); PH, Urine 5.5 (5.0-8.0); Protein,Urine 1+ (Negative); RBC,Urine >182 /hpf (0-5); Specific Gravity,Urine 1.023 (1.001-1.035); Urobilinogen,Urine <2.0 mg/dL (<2.0); WBC,Urine 55 /hpf (0-5)
[2024-10-17 14:53] LABS: Blood Urea Nitrogen 18.5 mg/dL (9.0-27.0); Chloride 106 mmol/L (96-109); Glucose 103 mg/dL (70-110); Potassium 4.2 mmol/L (3.5-5.5); Sodium 142 mmol/L (135-145)
[2024-10-17 14:54] LABS: Calcium 8.6 mg/dL (8.7-10.3); Carbon Dioxide 25.8 mmol/L (21.6-31.8)
[2024-10-17 15:51] LABS: Basophils # (A) 0.06 X 10*3/uL (0.00-0.10); Basophils % (A) 0.8 %; Eosinophils # (A) 0.21 X 10*3/uL (0.04-0.35); Eosinophils % (A) 2.9 %; HCT 42.3 % (39.6-50.0); HGB 13.5 g/dL (13.0-17.0); Lymphocytes # (A) 2.55 X 10*3/uL (0.90-5.00); Lymphocytes % (A) 35.5 %; MCH 29.5 pg (27.0-32.0); MCHC 31.9 g/dL (32.0-37.0); MCV 92.4 FL (80.0-97.0); Mean Platelet Volume 12.1 FL (9.5-12.2); Monocytes # (A) 0.94 X 10*3/uL (0.20-1.00); Monocytes % (A) 13.1 %; NRBC Per 100 WBC 0 X 10*3/uL (0.00-0.01); Neutrophils % (A) 47.4 %; Platelet Count 166 X 10*3/uL (140-440); RBC 4.58 X 10*6/uL (4.40-5.60); RDW 13.7 % (11.5-14.5); WBC 7.18 X 10*3/uL (4.50-10.00)
== END | disposition home or self-care (01) ==
LOC: LABPAT 10:08
PROVIDERS: ATTEND Urology
DX: Z01.812 Encounter for preprocedural laboratory examination (principal); D49.4 Neoplasm of unspecified behavior of bladder
CPT/HCPCS: 80048; 81001; 85025; 87086

== ENCOUNTER 2024-10-24 09:19 | Day surgery (SDC) | payer MEDICAID ==
--- NOTE | 2024-10-19 10:01 | P.HPIHPCON ---
History of Present Illness H&P Date: 10/19/24 Chief Complaint: Gross hematuria, bladder mass This is a 63-year-old male with history of gross hematuria, underwent a cystoscopy that showed evidence of a papillary bladder lesion. CT urogram showed no upper tract pathology. Discussed with him given this finding I recommend proceeding with a TURBT. He is aware of the risk which include but not limited to bleeding, infection, bladder perforation Consent for Procedure: I have explained the operation/procedure to the patient, including the risks, benefits, side effects, alternative therapies (including not receiving the proposed treatment or service), the likelihood of the patient achieving his/her goals, and potential recuperation problems for the procedure/sedation/analgesia, as well as any blood products, if indicated. I also explained to the patient the risks, benefits and side effects of the alternatives, as well as the risks related to not receiving the proposed procedure, care, treatment, or services. Past Medical History Past Medical History: Cancer, Osteoarthritis (OA) Additional Past Medical History / Comment(s): skin cancer History of Any Multi-Drug Resistant Organisms: MRSA Date of last positivie culture/infection: 2005 MDRO Source:: BILAT LEGS Past Surgical History: Orthopedic Surgery Additional Past Surgical History / Comment(s): 08/21 FACIAL RECONSTRUCTION R/T basal cell CANCER, right rotator cuff repair, left knee arthroscopy, bilat antonino bunion removal Past Anesthesia/Blood Transfusion Reactions: No Reported Reaction Additional Past Alcohol Use History / Comment(s): quit smoking 2004 - Past Family History Mother Family Medical History: Cancer Father Family Medical History: Cancer, Hypertension, Sleep Apnea/CPAP/BIPAP Additional Family Medical History / Comment(s): snoring Medications and Allergies Home Medications Medication Instructions Recorded Confirmed Type Bisoprolol-Hctz 2.5-6.25 mg [Ziac 1 tab PO DAILY 04/06/24 08/17/24 History 2.5-6.25 MG] Furosemide [Lasix] 40 mg PO DAILY 04/06/24 08/17/24 History Magnesium Oxide [Magnesium] 1,000 mg PO DAILY 04/06/24 08/17/24 History Rosuvastatin [Crestor] 10 mg PO DAILY 04/06/24 08/17/24 History Unk Multi Vitamin 1 tab PO DAILY 08/14/24 08/14/24 History Valsartan [Diovan] 160 mg PO DAILY 08/14/24 08/17/24 History HYDROcodone/APAP 5-325MG [[place] 1 tab PO Q6HR PRN #12 tab 08/17/24 Rx 5-325] Allergies Allergy/AdvReac Type Severity Reaction Status Date / Time morphine AdvReac Nausea & Verified 08/17/24 11:37 Vomiting Surgical - Exam - General no distress, no pain - Eyes normal ocular movement, no pale - ENT normal nares, normal mucosa - Respiratory normal expansion, normal respiratory effort - Abdomen Abdomen: soft, non tender - Psychiatric oriented to time, oriented to person, oriented to place Assessment and Plan Assessment: OR for TURBT
[2024-10-20 10:15] VITALS: BMI 51.2
[2024-10-24] MEDS ORDERED: fentaNYL (PF) 50 MCG/ML 2 ML AMP IV PRN (09:30)
[2024-10-24] MEDS: IV FLUID CONTINUATION 1,000 ML IV ONE (09:39)
[2024-10-24] MEDS: DEXAMETHASONE SOD PHOSPHATE 4 MG/ML 1 ML VIAL IV ONE (09:43)
[2024-10-24] MEDS: LACTATED RINGERS 1,000 ML IV SCH (09:43)
[2024-10-24] MEDS: ONDANSETRON 4 MG/2 ML VIAL IVP ONE (09:43)
[2024-10-24] MEDS ORDERED: MIDAZOLAM 2 MG/2 ML VIAL ONE (10:14)
[2024-10-24] MEDS ORDERED: ePHEDrine 50 MG/ML 1 ML VIAL ONE (10:14)
[2024-10-24] MEDS ORDERED: ALBUMIN HUMAN 5% (12.5gm) 250 ML BOTTLE IVPB ONE (10:14)
[2024-10-24] MEDS ORDERED: PROPOFOL 10 MG/ML 20 ML VIAL IV ONE (10:14)
[2024-10-24] MEDS ORDERED: fentaNYL (PF) 50 MCG/ML 2 ML AMP ONE (10:14)
[2024-10-24] MEDS ORDERED: KETAMINE HCL IN 0.9 % NACL 50 MG/5 ML SYRINGE ONE (10:14)
[2024-10-24] MEDS: ceFAZolin 3 GM in SODIUM CHLORIDE 0.9% 100 ML IVPB PRN (10:17)
[2024-10-24 11:32] VITALS: TEMP 97
--- NOTE | 2024-10-24 11:34 | P.OP ---
Date of Procedure: 10/24/24 Preoperative Diagnosis: Bladder mass Postoperative Diagnosis: Same Procedure(s) Performed: TURBT (large) Implants: none Anesthesia: spinal Surgeon: Edmund Hickey Estimated Blood Loss (ml): 25 Pathology: other (Bladder mass) Condition: stable Disposition: PACU Indications for Procedure: This is a 63-year-old male with history of gross hematuria, underwent a cystoscopy that showed evidence of a papillary bladder lesion. CT urogram showed no upper tract pathology. Discussed with him given this finding I recommend proceeding with a TURBT. 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 Description of Procedure: Patient brought to the operating room, general anesthesia was induced he was prepped and draped in sterile fashion placed in a dorsolithotomy position. Resectoscope fitted with a 25 Cameroonian sheath was inserted per urethra, cystoscopy showed mild enlargement of the prostate, but the prostate was not occlusive. In addition there was a large papillary tumor occupying the right trigone and extending to the right lateral wall, it was completely covering the right ureteral orifice I was unable to visualize ureteral orifice. Using the bipolar resectoscope the tumor was resected down to muscle, area of resection was thoroughly fulgurated also edges of the tumor was fulgurated, attention was taken to fulgurated the area of the ureteral orifice.. All tumor specimen was irrigated out. Repeat cystoscopy showed no evidence of bleeding or bladder perforation. The abdomen was soft at the end of resection. The right ureteral orifice was resected using a cut current during the resection, there was efflux seen from the ureteral orifice after the resection. Total area of resection was 5 cm. At this point the cystoscope was withdrawn and a 20 Cam[place]onian Valderrama was placed with return of clear urine. Patient tolerated procedure was taken to recovery in stable condition
[2024-10-24] MEDS: LACTATED RINGERS 1,000 ML IV ONE (13:40)
[2024-10-24 14:17] VITALS: RESP 16
[2024-10-24 14:46] VITALS: BP 151/77; PULSE 66
== END 2024-10-24 15:27 | disposition home or self-care (01) ==
LOC: OR 09:19
PROVIDERS: ATTEND Urology
DX: C67.9 Malignant neoplasm of bladder, unspecified (principal); R31.0 Gross hematuria; Z85.828 Personal history of other malignant neoplasm of skin; Z87.891 Personal history of nicotine dependence; Z88.5 Allergy status to narcotic agent
CPT/HCPCS: 52240; 52354; J1100; J0690; J2405; 88307

== ENCOUNTER 2024-11-14 07:00 | Day surgery (SDC) | payer MEDICAID ==
[2024-11-08 15:08] VITALS: BMI 50.0
[2024-11-14] MEDS ORDERED: LACTATED RINGERS 1,000 ML IV SCH (07:24)
[2024-11-14] MEDS ORDERED: LIDOCAINE 1% (10MG/ML) FOR IV START INTRADERMA PRN (07:24)
[2024-11-14 07:44] VITALS: TEMP 96.8
[2024-11-14] MEDS: IV FLUID CONTINUATION 1,000 ML IV ONE (07:45)
[2024-11-14] MEDS ORDERED: PROPOFOL 10 MG/ML 20 ML VIAL IV ONE (08:00)
--- NOTE | 2024-11-14 08:25 | P.GSHP ---
History of Present Illness H&P Date: 11/14/24 Chief Complaint: Colon cancer screening 63-year-old male here for colonoscopy. He has never had 1 before. Sister with history of colon cancer. No bowel complaints. Prior CAT scan showed diverticulosis but patient is asymptomatic. Past Medical History Past Medical History: Cancer, Hyperlipidemia, Hypertension, Osteoarthritis (OA) Additional Past Medical History / Comment(s): skin cancer, bladder CA History of Any Multi-Drug Resistant Organisms: MRSA Date of last positivie culture/infection: 2005 MDRO Source:: BILAT LEGS Past Surgical History: Orthopedic Surgery Additional Past Surgical History / Comment(s): 08/21 FACIAL RECONSTRUCTION R/T basal cell CANCER, right rotator cuff repair, left knee arthroscopy, bilat antonino bunion removal; Bladder tumor removal 10/2024 w/Ruperto Past Anesthesia/Blood Transfusion Reactions: Postoperative Nausea & Vomiting (PONV) Smoking Status: Former smoker - Past Family History Mother Family Medical History: Cancer Father Family Medical History: Cancer, Hypertension, Sleep Apnea/CPAP/BIPAP Additional Family Medical History / Comment(s): snoring Sister(s) Additional Family Medical History / Comment(s): Colon cancer. Medications and Allergies Home Medications Medication Instructions Recorded Confirmed Type Bisoprolol-Hctz 2.5-6.25 mg [Ziac 1 tab PO DAILY 04/06/24 11/08/24 History 2.5-6.25 MG] Furosemide [Lasix] 40 mg PO DAILY 04/06/24 11/08/24 History Magnesium Oxide [Magnesium] 1,000 mg PO DAILY 04/06/24 11/08/24 History Rosuvastatin [Crestor] 10 mg PO DAILY 04/06/24 11/08/24 History Valsartan [Diovan] 160 mg PO DAILY 08/14/24 11/08/24 History Multivitamins, Thera [Multivitamin 1 tab PO DAILY 10/20/24 11/08/24 History (formulary)] Allergies Allergy/AdvReac Type Severity Reaction Status Date / Time morphine AdvReac Nausea & Verified 11/14/24 07:28 Vomiting Surgical - Exam Vital Signs Temp Pulse Resp BP Pulse Ox 96.8 F L 56 L 16 154/67 94 L 11/14/24 07:43 11/14/24 07:43 11/14/24 07:43 11/14/24 07:43 11/14/24 07:43 Physical exam: General: Well-developed, well-nourished HEENT: Normocephalic, sclerae nonicteric Abdomen: Nontender, nondistended Extremities: No edema Neuro: Alert and oriented Assessment and Plan (1) Colon cancer screening Narrative/Plan: Will proceed with colonoscopy at this time. Current Visit: Yes Status: Acute Code(s): Z12.11 - ENCOUNTER FOR SCREENING FOR MALIGNANT NEOPLASM OF COLON SNOMED Code(s): 335962042
--- NOTE | 2024-11-14 08:26 | P.PCN ---
Date of Procedure: 11/14/24 Procedure(s) Performed: PREOPERATIVE DIAGNOSIS: Colon cancer screening POSTOPERATIVE DIAGNOSIS: Rectal polyps, mild diverticulosis PROCEDURE: Colonoscopy with snare polypectomy ANESTHESIA: MAC SURGEON: Osiel Durham M.D. SPECIMENS: Rectal polyps ENDOSCOPIC PROCEDURE: The patient was placed on the endoscopy table in the left decubitus position. The Olympus colonoscope was inserted into the anus and passed under direct visualization to the base of the cecum. The appendiceal orifice was visualized. From that point the scope was slowly withdrawn inspecting all surfaces carefully. There were no neoplastic inflammatory or polypoid lesions throughout the cecum, ascending, transverse, descending, and sigmoid colon. In the rectum there were 5 small rectal polyps removed using the snare with cautery technique. These had the appearance of hyperplastic polyps. The remainder of the rectum was normal. There was minimal left-sided diverticulosis noted. Digital rectal examination was normal. The patient was taken to the recovery room in stable condition per anesthesia guidelines. RECOMMENDATIONS: Await biopsy results. Will contact patient with timing for next colonoscopy. Likely 5 years.
[2024-11-14 08:45] VITALS: BP 111/66; PULSE 67; RESP 18
== END 2024-11-14 09:24 | disposition home or self-care (01) ==
LOC: ORWHC2ENDO 07:00
PROVIDERS: ATTEND Surgery
DX: Z12.11 Encounter for screening for malignant neoplasm of colon (principal); K62.1 Rectal polyp; K57.30 Diverticulosis of large intestine without perforation or abscess without bleeding; I10 Essential (primary) hypertension; E78.5 Hyperlipidemia, unspecified; M19.90 Unspecified osteoarthritis, unspecified site; Z91.89 Other specified personal risk factors, not elsewhere classified; Z79.899 Other long term (current) drug therapy; Z87.891 Personal history of nicotine dependence; Z85.51 Personal history of malignant neoplasm of bladder; Z85.828 Personal history of other malignant neoplasm of skin; Z86.14 Personal history of Methicillin resistant Staphylococcus aureus infection; Z88.5 Allergy status to narcotic agent; Z80.3 Family history of malignant neoplasm of breast
CPT/HCPCS: 45385; J2704; 88305

== ENCOUNTER → 2024-11-21 | Outpatient (CLI) | payer MEDICAID ==
--- NOTE | 2024-11-21 11:30 | US ---
EXAMINATION TYPE: US kidneys/renal and bladder DATE OF EXAM: 11/21/2024 COMPARISON: CT 10/03/2024 CLINICAL INDICATION: Male, 63 years old with history of C67.9 BLADDER CA; Bladder cancer, removed 10/24 TECHNIQUE: Grayscale imaging of the bilateral kidneys and urinary bladder: FINDINGS: EXAM MEASUREMENTS: Right Kidney: 12.7 x 6.2 x 7.2 cm Left Kidney: 14.4 x 4.7 x 7.1 cm Right Kidney: wnl, no evidence for hydronephrosis, mass or renal calculus. Left Kidney: wnl, no evidence for hydronephrosis, mass or renal calculus. Bladder: Possible residual tissue vs other noted at the posterior right wall with internal vascularit y. Bilateral Jets seen: Yes There is no evidence for hydronephrosis at this point in time. No nephrolithiasis is seen. No renal masses are identified. Corticomedullary differentiation is maintained bilaterally. There is posteri or right urinary bladder wall thickening with internal vascularity. The bilateral ureteral jets are i dentified. Splenomegaly measuring up to 18.9 cm. The visualized portion of the liver is hyperechoic. Exam limited by bowel gas, body habitus, and deep lie of left kidney due to splenomegaly. IMPRESSION: 1. No hydronephrosis or nephrolithiasis. 2. Posterior right urinary bladder wall thickening with internal vascularity likely related to known bladder cancer. 3. Splenomegaly. 4. Hepatic steatosis. [facility], , 11/21/2024 11:28 AM
== END | disposition home or self-care (01) ==
LOC: RADUSWWP 10:04
PROVIDERS: ATTEND Urology
DX: C67.9 Malignant neoplasm of bladder, unspecified (principal); R16.1 Splenomegaly, not elsewhere classified; N32.89 Other specified disorders of bladder; K76.0 Fatty (change of) liver, not elsewhere classified
CPT/HCPCS: 76770